=== PATIENT | female | born 1965 | race Caucasian/White ===

== ENCOUNTER 2016-06-07 21:25 | Inpatient (IN) | payer OTHER ==
[~2016-06-07] VITALS: Ht 160 cm; Wt 90.2 kg
[~2016-06-07 21:25] MED LIST: 3N1 COMMODE MC; ASPI-781 PO; AZEL23SP NS; CPM MC; CYCL-319 PO; DOCU-144 PO; DULO60CA59 PO; GABA300C16 PO; LEVO50TA74 PO; LISI10TA2 PO; MELO7.5O PO; METF-382 PO; METO25TA7 PO; OMEP40CA6 PO; OXYC-481 PO; TIZA4CAP6 PO; TRAM50TA2 PO; WALK1EAC23 MC; ZOLP5TAB PO; [UNRECOGNIZED DRUG - OTHER] PO; [UNRECOGNIZED DRUG - OTHER] PO
[2016-06-07 22:25] VITALS: PULSE 74
[2016-06-07 22:31] VITALS: BP 138/83; RESP 20
[2016-06-07 22:44] VITALS: Ht 160 cm; Wt 90.2 kg
[2016-06-07] MEDS ORDERED: LEVO25TA53 PO (23:48)
[2016-06-08] VITALS (12 sets, daily range): BP systolic 117–137; BP diastolic 58–68; PULSE 56–78; RESP 16–20
[2016-06-08] MEDS ORDERED: TIZANIDINE 4 MG TAB PO PRN
--- NOTE | 2016-06-08 02:17 | HP ---
Date/Time of Note Date/Time of Note DATE: 06/08/16 TIME: 02: Assessment/Plan VTE Prophylaxis VTE Prophylaxis Intervention: other (Enoxaparin) Assessment/Plan Assessment/Plan 1) New onset seizures - Admit to Telemetry - EEG and MRI brain - Neurology Consult HPI/ROS Admit Date/Time Admit Date/Time Jun 07, 2016 at 21:25 Hx of Present Illness Patient was transferred to us from [facility] with C/O New Onset Seizure. She had the seizure earlier today, and it was witnessed by her . She had been relaxing when she suddenly felt cold and then began to have what is described as ageneralized tonic-clinic seizure activity, lasting approximately 3 to 4 minutes. She was groggy for about 45 minutes and was back to baseline when she arrived to the ER. She noticed she bit her tongue durien the episode andloss continence of her urine.No abdominal pain. No recent vomiting.No headache. Patient also reports that she has felt a presyncopal sensationof dizziness over the past year, but does not feel that way at present. Other than smoking cigarettes, her ROS is unremarkable. ROS Constitutional: No chills, No febrile Eyes: No discharge, No visual change ENT: No congestion, No dysphagia, No sore throat Respiratory: No cough Cardiovascular: No chest pain, No edema Gastrointestinal: No constipation, No diarrhea, No nausea, No pain Genitourinary: other Musculoskeletal: other (No generalized body aches.) Skin: No bruising, No erythema, No pruritis, No rash Neurologic: seizure, No confusion, No focal-weakness, No headache Endocrine: No polydypsia, No polyuria Lymphatic: No adenopathy, No tender nodes Psychological: anxiety, depression Immunologic: pruritis, No immunodeficiency, No rhinitis PMH/Family/Social Past Medical History Medical History: diabetes, hypertension, hypothyroid, other (bowel troubles) Past Surgical History Past Surgical Hx: other (No seizures.) Social History Alcohol Use: occasionally Smoking Status: Former smoker Drug Use: other (Occasional illicit drug use.) Exam/Review of Systems Vital Signs Vitals Vital Signs Date Time Temp Pulse Resp B/P Pulse Ox O2 Delivery O2 Flow Rate FiO2 06/08/16 00:51 77 06/08/16 00:13 98.4 20 117/58 95 Exam Constitutional: alert, oriented, well developed Head: atraumatic, normocephalic Eyes: EOMI, nl conjunctiva, nl lids, nl sclera ENMT: nl external ears & nose, nl lips & teeth Neck: non-tender, supple Respiratory: clear to auscultation, normal air movement Cardiovascular: nl pulses, regular rate and rhythm Gastrointestinal: nl liver, spleen, non-tender, soft Musculoskeletal: nl extremities to inspection Extremities: normal pulses Neurological: LAND DEVELOPER II-XII intact (Grossly), nl speech Skin: nl turgor, rash or lesions Lymph: nl lymph nodes (Cervical) Medications Medications Current Medications Docusate Sodium (Colace) 100 mg QHS PO ; Start 06/08/16 at 21:00 Duloxetine HCl (Cymbalta) 60 mg DAILY PO ; Start 06/08/16 at 09:00 Gabapentin (Neurontin) 800 mg HS PO ; Start 06/08/16 at 21:00 Lisinopril (Zestril) 10 mg DAILY PO ; Start 06/08/16 at 09:00 Metoprolol Succinate (Toprol Xl) 25 mg BID PO ; Start 06/08/16 at 09:00 Tizanidine HCl (Zanaflex) 4 mg HS PRN PO MUSCLE SPASMS; Start 06/08/16 at 00:00 Zolpidem Tartrate (Ambien) 5 mg HS PRN PO INSOMNIA; Start 06/08/16 at 00:00 Miscellaneous Information 15 mg DAILY PO ; Start 06/08/16 at 09:00; Status UNV Pantoprazole (Protonix Tab) 40 mg DAILY@06 PO ; Start 06/08/16 at 06:00 Miscellaneous Information 500 mg BID PO ; Start 06/08/16 at 09:00; Status UNV Procedures Procedures CT Brain, done at [facility], is listed as Negative in the documentation. SHAWN OLVERA DO Jun 08, 2016 02:17
[2016-06-08] MEDS ORDERED: NACL 0.9% 3 ML SYG IV SCH (05:00)
[2016-06-08] MEDS ORDERED: NITROGLYCERIN (SL) 0.4 MG TAB SL PRN (05:00)
[2016-06-08] MEDS ORDERED: ONDANSETRON 4 MG INJ IV PRN (05:00)
[2016-06-08] MEDS ORDERED: ONDANSETRON 4 MG TAB PO PRN (05:00)
[2016-06-08] MEDS: LEVOTHYROXINE 25 MCG TAB PO SCH (06:28)
[2016-06-08] MEDS: PANTOPRAZOLE (EC) 40 MG TAB PO SCH (06:28)
[2016-06-08] MEDS ORDERED: GLUCAGON 1 MG INJ IM PRN (06:30)
[2016-06-08] MEDS ORDERED: DEXTROSE 50% 50 ML SYRINGE IV PRN ×2 (06:30)
[2016-06-08] MEDS ORDERED: GLUCOSE GEL 15 GRAM TUBE PO PRN ×2 (06:30)
[2016-06-08] MEDS ORDERED: GLUCOSE GEL 15 GRAM TUBE BUCCAL PRN (06:30)
[2016-06-08] MEDS ORDERED: metFORMIN 500 MG TAB PO SCH (07:55)
[2016-06-08] MEDS: ACETAMINOPHEN 325 MG TAB PO PRN ×2 (08:05→18:06)
[2016-06-08] MEDS: MELOXICAM 15 MG TAB PO SCH (08:06)
[2016-06-08] MEDS: SULFASALAZINE (EC) 500 MG TAB PO SCH ×2 (08:06→20:32)
[2016-06-08] MEDS: DULOXETINE 30 MG CAP DR PO SCH (08:07)
[2016-06-08] MEDS: LISINOPRIL 10 MG TAB PO SCH (08:07)
[2016-06-08] MEDS: METOPROLOL (XL) 25 MG TAB PO SCH ×2 (08:11→20:55)
[2016-06-08] MEDS: ENOXAPARIN 30 MG/0.3 ML SYG SC SCH (08:14)
[2016-06-08 11:49] LABS: ADD SCAN DIFF NO
[2016-06-08] MEDS: INSULIN ASPART [NOVOLOG] 3 ML PEN SC SCH ×3 (11:50→21:37)
[2016-06-08] MEDS ORDERED: INSULIN ASPART [NOVOLOG] 3 ML PEN SC SCH (11:50)
[2016-06-08 12:00] LABS: ALBUMIN 3.8 g/dl (3.3-4.9)
[2016-06-08 12:01] LABS: POTASSIUM 3.9 mmol/L (3.5-5.1)
[2016-06-08 12:03] LABS: ALBUMIN/GLOBULIN RATIO 1.35; BILIRUBIN,DIRECT 0.1 mg/dl (0.00-0.20); BILIRUBIN,TOTAL 0.1 mg/dl (0.2-1.3); CREATININE 0.68 mg/dl (0.44-1.00); TOTAL PROTEIN 6.6 g/dl (6.1-8.1)
[2016-06-08 12:04] LABS: CALCIUM 9.3 mg/dl (8.4-10.2); MAGNESIUM 2.1 mg/dl (1.7-2.5); PHOSPHORUS 3.4 mg/dl (2.5-4.9)
[2016-06-08 12:23] LABS: BASOPHILS % 0.2 % (0.0-2.0); EOSINOPHILS % 0.1 % (0.0-7.0); HEMATOCRIT 34.3 % (37.0-47.0); HEMOGLOBIN 10.9 g/dl (12.0-16.0); LYMPHOCYTES # 1.8 10^3/ul (0.8-2.9); LYMPHOCYTES % 21.6 % (15.0-51.0); MEAN CORPUSCULAR HEMOGLOBIN 31.1 pg (29.0-33.0); MEAN CORPUSCULAR HGB CONC 31.8 g/dl (32.0-37.0); MEAN CORPUSCULAR VOLUME 97.7 fl (82.0-101.0); MEAN PLATELET VOLUME 10.3 fl (7.4-10.4); MONOCYTE # 0.7 10^3/ul (0.3-0.9); MONOCYTES % 8.5 % (0.0-11.0); NEUTROPHIL # 5.8 10^3/ul (1.6-7.5); NEUTROPHILS % 69.2 % (39.0-77.0); PLATELET COUNT 223 10^3/UL (140-415); RED BLOOD COUNT 3.51 10^6/ul (4.20-5.40); RED CELL DISTRIBUTION WIDTH 13.2 % (11.5-14.5); WHITE BLOOD COUNT 8.4 10^3/ul (4.8-10.8)
[2016-06-08 13:39] LABS: BARBITURATES Negative (NEGATIVE); BENZODIAZEPINES Negative (NEGATIVE); CANNABINOIDS Positive (NEGATIVE); COCAINE Negative (NEGATIVE); OPIATES Negative (NEGATIVE)
--- NOTE | 2016-06-08 14:21 | CONS ---
Date/Time of Note Date/Time of Note DATE: 06/08/16 TIME: 14:17 Assessment/Plan Assessment/Plan Chief Complaint/Hosp Course 50 year old female with history of RA, diabetes, hypothyroidism presenting with first generalized seizure with post ictal confusion. Recommend: -MRI Brain without contrast -Routine EEG -abstinence from driving up to 6 mo per [place] state regulations -urine tox screen Problems: Consultation Date/Type/Reason Admit Date/Time Jun 07, 2016 at 21:25 Date of Consultation: Jun 08, 2016 Type of Consultation: Neurology Reason for Consultation seizure eval Referring Provider: VANDANA BYRNES NP Hx of Present Illness 50 year old female with history of RA on several immunomodulating medications, smoking history, diabetes, bilateral knee replacements admitted after first onset of generalized seizure. Patient recalls putting her grandson to sleep when she had a generalized convulsion witnessed by her lasting 3-4 mins with associated tongue biting and post-ictal confusing lasting 45 mins. She denies previous hx of seizure, no prior history of CVA. She denies any new medications. She admits to smoking marijuana over 2 weeks ago at a wedding, denies any recent drug use. confusion Eyes: No discharge, No visual change ENT: No congestion, No dysphagia, No sore throat Respiratory: No cough Cardiovascular: No chest pain, No edema Gastrointestinal: No constipation, No diarrhea, No nausea, No pain Genitourinary: other Musculoskeletal: other (No generalized body aches.) Skin: No bruising, No erythema, No pruritis, No rash Neurologic: seizure, No confusion, No focal-weakness, No headache Lymphatic: No adenopathy, No tender nodes Psychological: anxiety, depression Immunologic: pruritis, No immunodeficiency, No rhinitis Past Medical History sisters daughter her niece has epilepsy Medical History: diabetes, hypertension, hypothyroid, other (bowel troubles) Past Surgical History Past Surgical Hx: other (No seizures.) Social History Alcohol Use: occasionally Smoking Status: Former smoker Drug Use: other (Occasional illicit drug use.) Exam/Review of Systems Vital Signs Vitals Vital Signs Date Time Temp Pulse Resp B/P Pulse Ox O2 Delivery O2 Flow Rate FiO2 06/08/16 12:31 65 06/08/16 11:05 98.1 18 119/63 97 Intake and Output 06/07/16 06/07/16 06/08/16 15:00 23:00 07:00 Intake Total 120 ml Balance 120 ml Exam Constitutional: alert, oriented, well developed Psych: confusion Head: normocephalic, other (tongue laceration) Eyes: EOMI, nl conjunctiva, nl lids Neurological: FITTING ROOM ATTENDANT II-XII intact, DTR's symmetric, nl mental status, nl speech, nl strength Results Result Diagram: 06/08/16 1135 06/08/16 1135 Results 24 hrs Laboratory Tests Test 06/07/16 23:03 06/08/16 07:51 06/08/16 11:35 06/08/16 11:51 Bedside Glucose 161 114 108 Alanine Aminotransferase (ALT/SGPT) 27 Albumin 3.8 Albumin/Globulin Ratio 1.35 Alkaline Phosphatase 72 Anion Gap 15 Aspartate Amino Transf (AST/SGOT) 21 Basophils # 0.0 Basophils % 0.2 Blood Urea Nitrogen 18 Calcium Level 9.3 Carbon Dioxide Level 26 Chloride Level 105 Creatinine 0.68 Direct Bilirubin 0.10 Eosinophils # 0.0 Eosinophils % 0.1 Free Thyroxine 1.64 Globulin 2.80 Glucose Level 108 Hematocrit 34.3 L Hemoglobin 10.9 L Indirect Bilirubin 0.0 Lymphocytes # 1.8 Lymphocytes % 21.6 Magnesium Level 2.1 Mean Corpuscular Hemoglobin 31.1 Mean Corpuscular Hemoglobin Concent 31.8 L Mean Corpuscular Volume 97.7 Mean Platelet Volume 10.3 Monocytes # 0.7 Monocytes % 8.5 Neutrophils # 5.8 Neutrophils % 69.2 Nucleated Red Blood Cells # 0.0 Nucleated Red Blood Cells % 0.0 Phosphorus Level 3.4 Platelet Count 223 Potassium Level 3.9 Red Blood Count 3.51 L Red Cell Distribution Width 13.2 Sodium Level 142 Total Bilirubin 0.1 L Total Protein 6.6 White Blood Count 8.4 Test 06/08/16 12:00 Urine Amphetamines Screen Negative Urine Barbiturates Negative Urine Benzodiazepines Screen Negative Urine Cannabinoids Positive Urine Cocaine Screen Negative Urine Opiates Screen Negative Urine Test NEGATIVE Medications Medications Current Medications Docusate Sodium (Colace) 100 mg QHS PO ; Start 06/08/16 at 21:00 Duloxetine HCl (Cymbalta) 60 mg DAILY PO Last administered on 06/08/16t 08:07; Admin Dose 60 MG; Start 06/08/16 at 09:00 Gabapentin (Neurontin) 800 mg HS PO ; Start 06/08/16 at 21:00 Lisinopril (Zestril) 10 mg DAILY PO Last administered on 06/08/16 08:07; Admin Dose 10 MG; Start 06/08/16 at 09:00 Metoprolol Succinate (Toprol Xl) 25 mg BID PO Last administered on 06/08/16 08 :11; Admin Dose 25 MG; Start 06/08/16 at 09:00 Tizanidine HCl (Zanaflex) 4 mg HS PRN PO MUSCLE SPASMS; Start 06/08/16 at 00:00 Zolpidem Tartrate (Ambien) 5 mg HS PRN PO INSOMNIA; Start 06/08/16 at 00:00 Meloxicam (Mobic) 15 mg DAILY PO Last administered on 06/08/16 08:06; Admin Dose 15 MG; Start 06/08/16 at 09:00 Pantoprazole (Protonix Tab) 40 mg DAILY@06 PO Last administered on 06/08/16 06 :28; Admin Dose 40 MG; Start 06/08/16 at 06:00 Sulfasalazine (Azulfidine (Entab)) 500 mg BID PO Last administered on 08:06; Admin Dose 500 MG; Start 06/08/16 at 09:00 Ondansetron HCl (Zofran Tab) 4 mg Q6H PRN PO NAUSEA AND/OR VOMITING; Start 01/15 at 05:00 Ondansetron HCl (Zofran Inj) 4 mg Q6H PRN IV NAUSEA AND/OR VOMITING; Start 01/15 at 05:00 Nitroglycerin (Nitroglycerin (Sl Tab) 0.4 Mg) 1 tab Q5M PRN SL CHEST PAIN; Start 06/08/16 at 05:00 Acetaminophen (Tylenol Tab) 650 mg Q6H PRN PO PAIN LEVEL 1-3 OR FEVER Last administered on 06/08/16 08:05; Admin Dose 650 MG; Start 06/08/16 at 05:00 Enoxaparin Sodium (Lovenox) 30 mg DAILY SC Last administered on 06/08/16 08:14 ; Admin Dose 30 MG; Start 06/08/16 at 09:00 Miscellaneous Information 1 ea NOTE XX ; Start 06/08/16 at 06:30 Glucose (Glutose) 15 gm Q15M PRN PO DECREASED GLUCOSE; Start 06/08/16 at 06:30 Glucose (Glutose) 22.5 gm Q15M PRN PO DECREASED GLUCOSE; Start 06/08/16 at 06: 30 Dextrose (D50w Syringe) 25 ml Q15M PRN IV DECREASED GLUCOSE; Start 06/08/16 at 06:30 Dextrose (D50w Syringe) 50 ml Q15M PRN IV DECREASED GLUCOSE; Start 06/08/16 at 06:30 Glucagon (Glucagen) 1 mg Q15M PRN IM DECREASED GLUCOSE; Start 06/08/16 at 06:30 Glucose (Glutose) 15 gm Q15M PRN BUCCAL DECREASED GLUCOSE; Start 06/08/16 at 06 :30 Diagnostic Test (Pha) (Accucheck) 1 ea 02 XX ; Start 06/09/16 at 02:00 ALDAIR AMEZQUITA MD Jun 08, 2016 14:21
[2016-06-08 14:48] LABS: CHOL/HDL RATIO 2.7 RATIO; CHOLESTEROL 161 mg/dl (100-200); CREATINE KINASE 118 IU/L (23-200); TRIGLYCERIDES 126 mg/dl (0-149)
[2016-06-08 14:49] LABS: HDL CHOLESTEROL 59 mg/dl (37-92)
[2016-06-08 15:00] LABS: CK-MB < 0.22 ng/ml (0.0-2.4)
[2016-06-08 15:04] LABS: TROPONIN-I < 0.012 ng/ml (0.00-0.12)
[2016-06-08 15:22] LABS: THYROID STIMULATING HORMONE 1.35 MIU/L (0.465-4.680)
[2016-06-08] MEDS ORDERED: INSULIN GLARGINE [LANtus] 3 ML PEN SC SCH (20:00)
[2016-06-08] MEDS: DOCUSATE SODIUM 100 MG CAP PO SCH (20:53)
[2016-06-08] MEDS: GABAPENTIN 400 MG CAP PO SCH (20:54)
[2016-06-08] MEDS: ZOLPIDEM 5 MG TAB PO PRN (20:56)
[2016-06-09] VITALS (12 sets, daily range): BP systolic 97–125; BP diastolic 55–69; PULSE 58–71; RESP 16–20
[2016-06-09 06:13] LABS: ADD SCAN DIFF NO
[2016-06-09] MEDS: ACCUCHECK XX SCH (06:17)
[2016-06-09] MEDS: PANTOPRAZOLE (EC) 40 MG TAB PO SCH (06:17)
[2016-06-09 06:27] LABS: BASOPHILS % 0.4 % (0.0-2.0); EOSINOPHILS # 0.1 10^3/ul (0.0-0.5); EOSINOPHILS % 0.9 % (0.0-7.0); HEMOGLOBIN 10.5 g/dl (12.0-16.0); LYMPHOCYTES # 3.1 10^3/ul (0.8-2.9); LYMPHOCYTES % 46.2 % (15.0-51.0); MEAN CORPUSCULAR HEMOGLOBIN 31.4 pg (29.0-33.0); MEAN CORPUSCULAR HGB CONC 31.8 g/dl (32.0-37.0); MEAN CORPUSCULAR VOLUME 98.8 fl (82.0-101.0); MEAN PLATELET VOLUME 10.2 fl (7.4-10.4); MONOCYTE # 0.7 10^3/ul (0.3-0.9); MONOCYTES % 9.8 % (0.0-11.0); NEUTROPHIL # 2.9 10^3/ul (1.6-7.5); NEUTROPHILS % 42.4 % (39.0-77.0); PLATELET COUNT 208 10^3/UL (140-415); RED BLOOD COUNT 3.34 10^6/ul (4.20-5.40); RED CELL DISTRIBUTION WIDTH 13.1 % (11.5-14.5); WHITE BLOOD COUNT 6.8 10^3/ul (4.8-10.8)
[2016-06-09 06:30] LABS: POTASSIUM 4.1 mmol/L (3.5-5.1)
[2016-06-09 06:33] LABS: CREATININE 0.72 mg/dl (0.44-1.00)
[2016-06-09 06:34] LABS: CALCIUM 9.3 mg/dl (8.4-10.2)
[2016-06-09 06:35] LABS: PHOSPHORUS 3.7 mg/dl (2.5-4.9)
[2016-06-09] MEDS: LEVOTHYROXINE 25 MCG TAB PO SCH (07:42)
[2016-06-09] MEDS: INSULIN ASPART [NOVOLOG] 3 ML PEN SC SCH ×4 (07:46→20:22)
[2016-06-09] MEDS: LISINOPRIL 10 MG TAB PO SCH (08:26)
[2016-06-09] MEDS: MELOXICAM 15 MG TAB PO SCH (08:26)
[2016-06-09] MEDS: SULFASALAZINE (EC) 500 MG TAB PO SCH ×2 (08:26→20:19)
[2016-06-09] MEDS: METOPROLOL (XL) 25 MG TAB PO SCH ×2 (08:27→20:21)
[2016-06-09] MEDS: DULOXETINE 30 MG CAP DR PO SCH (08:27)
[2016-06-09] MEDS: ENOXAPARIN 30 MG/0.3 ML SYG SC SCH (08:31)
--- NOTE | 2016-06-09 13:39 | PN ---
DATE: 06/09/2016 SUBJECTIVE DATA: She denies any headaches. No more seizure episodes reported. OBJECTIVE DATA: VITAL SIGNS: Temperature 97.9, pulse of 64, respiratory rate 20, blood pressure 125/69, oxygen saturation 98% on room air. GENERAL: This is an obese female lying in bed, in no apparent distress. HEENT: Head normocephalic and atraumatic. Eyes, anicteric sclerae. Conjunctivae clear. ENT: Nasal septum is midline. Oral mucosa is dry. NECK: Supple. No JVD noticed. RESPIRATORY: Bilaterally clear to auscultation. No adventitious breath sounds. No use of accessory muscles of respiration. CARDIAC: Regular rate and rhythm. No murmurs. ABDOMEN: Soft, nontender and nondistended. Bowel sounds are positive in all 4 quadrants. GENITOURINARY: Deferred. EXTREMITIES: No cyanosis, no clubbing, no edema. Peripheral pulses are palpable. NEUROLOGIC: The patient is awake, alert and oriented. Cranial nerves are grossly intact. LABORATORY AND DIAGNOSTIC DATA: WBC 6.8, hemoglobin 10.5, hematocrit 32.0, platelet count 208. Sodium 147, potassium 4.0, chloride 109, carbon dioxide 28 , anion gap 14, BUN 19, creatinine 0.7, glucose 86, calcium 9.3, phosphorus 3.7 , magnesium 2.0. ASSESSMENT AND PLAN: 1. Reported tonic-clonic seizures. The patient was seen and evaluated by neurology. Continue seizure precautions. Pending electroencephalography and MRI. The patient has no prior history of seizures. 2. Type 2 diabetes. Hemoglobin A1c is 5.5. Continue sliding scale insulin. 3. Hypothyroidism. Continue Synthroid. 4. Essential hypertension. Continue antihypertensives. Blood pressure well controlled. 5. Rheumatoid arthritis. Continue medications. 6. Normocytic normochromic anemia. Etiology unclear. Will order an iron panel on this patient. Will monitor the patient closely. 7. Substance abuse. Urine drug screen positive for marijuana. Cessation advised. 8. Fluid, electrolytes and nutrition. Carbohydrate controlled diet. 9. Deep venous thrombosis prophylaxis. Bilateral sequential compression devices. Subcutaneous Lovenox. 10. Gastrointestinal prophylaxis. Histamine 2 receptor blockers. PLAN: Await electroencephalography and brain MRI. Continue seizure precautions. The case was discussed with Dr. Angel. VANDANA ANGEL MD, AM/NAYELI Conf#: [id number] [facility]#: [id number] MTDD
[2016-06-09 15:14] LABS: IRON 59 ug/dl (35-150)
[2016-06-09 15:23] LABS: TOTAL IRON BINDING CAPACITY 347 ug/dl (241-421)
--- NOTE | 2016-06-09 18:00 | CONS ---
Date/Time of Note Date/Time of Note DATE: 06/09/16 TIME: 17:58 Consult Date/Type/Reason Admit Date/Time Jun 07, 2016 at 21:25 Initial Consult Date 06/08/16 Type of Consultation: Neurology Reason for Consultation generalized seizure activity Ordering Provider: VANDANA BYRNES FORCE ADJUSTMENT SUPERVISOR Subjective no seizures overnight mental status improved family at bedside denies prior hx seizures, patient complains she is on 16 medications and does not want additional meds Objective Vital Signs Date Time Temp Pulse Resp B/P Pulse Ox O2 Delivery O2 Flow Rate FiO2 06/09/16 16:39 69 06/09/16 11:44 97.9 20 125/69 98 06/09/16 08:00 Room Air Intake and Output 06/08/16 06/08/16 06/09/16 15:00 23:00 07:00 Intake Total 1000 ml Output Total 1200 ml Balance -200 ml Exam Constitutional: alert, oriented, well developed Psych: confusion Head: normocephalic, other (tongue laceration) Eyes: EOMI, nl conjunctiva, nl lids Neurological: LIQUOR ESTABLISHMENT MANAGER II-XII intact, DTR's symmetric, nl mental status, nl speech, nl strength Results/Medications Result Diagram: 06/09/16 0553 06/09/16 0553 Results 24 hrs Laboratory Tests Test 06/08/16 20:51 06/09/16 05:53 06/09/16 05:55 06/09/16 06:16 Bedside Glucose 154 97 Anion Gap 14 Basophils # 0.0 Basophils % 0.4 Blood Urea Nitrogen 19 Calcium Level 9.3 Carbon Dioxide Level 28 Chloride Level 109 Creatinine 0.72 Eosinophils # 0.1 Eosinophils % 0.9 Glucose Level 86 Hematocrit 33.0 L Hemoglobin 10.5 L Lymphocytes # 3.1 H Lymphocytes % 46.2 Magnesium Level 2.0 Mean Corpuscular Hemoglobin 31.4 Mean Corpuscular Hemoglobin Concent 31.8 L Mean Corpuscular Volume 98.8 Mean Platelet Volume 10.2 Monocytes # 0.7 Monocytes % 9.8 Neutrophils # 2.9 Neutrophils % 42.4 Nucleated Red Blood Cells # 0.0 Nucleated Red Blood Cells % 0.0 Phosphorus Level 3.7 Platelet Count 208 Potassium Level 4.1 Red Blood Count 3.34 L Red Cell Distribution Width 13.1 Sodium Level 147 H White Blood Count 6.8 Ferritin 20.4 Iron Level 59 Percent Iron Saturation 17 L Total Iron Binding Capacity 347 Test 06/09/16 07:46 06/09/16 12:11 06/09/16 17:16 Bedside Glucose 101 107 114 Medications Current Medications Docusate Sodium (Colace) 100 mg QHS PO Last administered on 06/08/16 20:53; Admin Dose 100 MG; Start 06/08/16 at 21:00 Duloxetine HCl (Cymbalta) 60 mg DAILY PO Last administered on 06/09/16 08:27; Admin Dose 60 MG; Start 06/08/16 at 09:00 Gabapentin (Neurontin) 800 mg HS PO Last administered on 06/08/16 20:54; Admin Dose 800 MG; Start 06/08/16 at 21:00 Lisinopril (Zestril) 10 mg DAILY PO Last administered on 06/09/16 08:26; Admin Dose 10 MG; Start 06/08/16 at 09:00 Metoprolol Succinate (Toprol Xl) 25 mg BID PO Last administered on 06/09/16 08 :27; Admin Dose 25 MG; Start 06/08/16 at 09:00 Tizanidine HCl (Zanaflex) 4 mg HS PRN PO MUSCLE SPASMS; Start 06/08/16 at 00:00 Zolpidem Tartrate (Ambien) 5 mg HS PRN PO INSOMNIA Last administered on 20:56; Admin Dose 5 MG; Start 06/08/16 at 00:00 Meloxicam (Mobic) 15 mg DAILY PO Last administered on 06/09/16 08:26; Admin Dose 15 MG; Start 06/08/16 at 09:00 Pantoprazole (Protonix Tab) 40 mg DAILY@06 PO Last administered on 06/09/16 06 :17; Admin Dose 40 MG; Start 06/08/16 at 06:00 Sulfasalazine (Azulfidine (Entab)) 500 mg BID PO Last administered on 08:26; Admin Dose 500 MG; Start 06/08/16 at 09:00 Ondansetron HCl (Zofran Tab) 4 mg Q6H PRN PO NAUSEA AND/OR VOMITING; Start 01/15 at 05:00 Ondansetron HCl (Zofran Inj) 4 mg Q6H PRN IV NAUSEA AND/OR VOMITING; Start 01/15 at 05:00 Nitroglycerin (Nitroglycerin (Sl Tab) 0.4 Mg) 1 tab Q5M PRN SL CHEST PAIN; Start 06/08/16 at 05:00 Acetaminophen (Tylenol Tab) 650 mg Q6H PRN PO PAIN LEVEL 1-3 OR FEVER Last administered on 06/08/16 18:06; Admin Dose 650 MG; Start 06/08/16 at 05:00 Enoxaparin Sodium (Lovenox) 30 mg DAILY SC Last administered on 06/09/16 08:31 ; Admin Dose 30 MG; Start 06/08/16 at 09:00 Miscellaneous Information 1 ea NOTE XX ; Start 06/08/16 at 06:30 Glucose (Glutose) 15 gm Q15M PRN PO DECREASED GLUCOSE; Start 06/08/16 at 06:30 Glucose (Glutose) 22.5 gm Q15M PRN PO DECREASED GLUCOSE; Start 06/08/16 at 06: 30 Dextrose (D50w Syringe) 25 ml Q15M PRN IV DECREASED GLUCOSE; Start 06/08/16 at 06:30 Dextrose (D50w Syringe) 50 ml Q15M PRN IV DECREASED GLUCOSE; Start 06/08/16 at 06:30 Glucagon (Glucagen) 1 mg Q15M PRN IM DECREASED GLUCOSE; Start 06/08/16 at 06:30 Glucose (Glutose) 15 gm Q15M PRN BUCCAL DECREASED GLUCOSE; Start 06/08/16 at 06 :30 Diagnostic Test (Pha) (Accucheck) 1 ea 02 XX Last administered on 06/09/16 06: 17; Admin Dose 1 EA; Start 06/09/16 at 02:00 Assessment/Plan Chief Complaint/Hosp Course 50 year old female with history of RA, diabetes, hypothyroidism presenting with first generalized seizure with post ictal confusion, symptoms improved. Neurologic exam non-focal. Recommend: -MRI Brain without contrast pending -Routine EEG pending -abstinence from driving up to 6 mo per [place] state regulations -will require AED ppx if she has a second unprovoked seizure, awaiting further study results to decide if AED is indicated she is reluctant to start additional medications at this time on several meds for RA and possibly polypharmacy contributed to first time seizure Problems: ALDAIR AMEZQUITA MD Jun 09, 2016 18:00
[2016-06-09] MEDS: GABAPENTIN 400 MG CAP PO SCH (20:18)
[2016-06-09] MEDS: DOCUSATE SODIUM 100 MG CAP PO SCH (20:19)
[2016-06-09] MEDS: ZOLPIDEM 5 MG TAB PO PRN ×2 (20:21→22:04)
[2016-06-10] VITALS (10 sets, daily range): BP systolic 111–130; BP diastolic 59–66; PULSE 50–78; RESP 16–58
[2016-06-10] MEDS: ACCUCHECK XX SCH (02:00)
[2016-06-10] MEDS: PANTOPRAZOLE (EC) 40 MG TAB PO SCH (05:34)
[2016-06-10 06:05] LABS: ADD SCAN DIFF NO
[2016-06-10 06:08] LABS: BASOPHILS % 0.5 % (0.0-2.0); EOSINOPHILS # 0.1 10^3/ul (0.0-0.5); EOSINOPHILS % 1.1 % (0.0-7.0); HEMATOCRIT 31.5 % (37.0-47.0); HEMOGLOBIN 10.5 g/dl (12.0-16.0); LYMPHOCYTES # 3.2 10^3/ul (0.8-2.9); LYMPHOCYTES % 48.2 % (15.0-51.0); MEAN CORPUSCULAR HGB CONC 33.3 g/dl (32.0-37.0); MONOCYTE # 0.7 10^3/ul (0.3-0.9); MONOCYTES % 10.8 % (0.0-11.0); NEUTROPHIL # 2.6 10^3/ul (1.6-7.5); NEUTROPHILS % 39.2 % (39.0-77.0); PLATELET COUNT 205 10^3/UL (140-415); RED BLOOD COUNT 3.28 10^6/ul (4.20-5.40); RED CELL DISTRIBUTION WIDTH 12.7 % (11.5-14.5); WHITE BLOOD COUNT 6.6 10^3/ul (4.8-10.8)
[2016-06-10 06:40] LABS: CREATININE 0.62 mg/dl (0.44-1.00); POTASSIUM 3.4 mmol/L (3.5-5.1)
[2016-06-10 06:43] LABS: MAGNESIUM 1.9 mg/dl (1.7-2.5); PHOSPHORUS 4.1 mg/dl (2.5-4.9)
[2016-06-10] MEDS: INSULIN ASPART [NOVOLOG] 3 ML PEN SC SCH ×4 (07:55→20:42)
[2016-06-10] MEDS: MELOXICAM 15 MG TAB PO SCH (08:05)
[2016-06-10] MEDS: LEVOTHYROXINE 25 MCG TAB PO SCH (08:05)
[2016-06-10] MEDS: SULFASALAZINE (EC) 500 MG TAB PO SCH ×2 (08:05→20:09)
[2016-06-10] MEDS: DULOXETINE 30 MG CAP DR PO SCH (08:05)
[2016-06-10] MEDS: LISINOPRIL 10 MG TAB PO SCH (08:06)
[2016-06-10] MEDS: ENOXAPARIN 30 MG/0.3 ML SYG SC SCH (08:11)
[2016-06-10] MEDS: METOPROLOL (XL) 25 MG TAB PO SCH ×2 (09:00→20:10)
--- NOTE | 2016-06-10 11:43 | PN ---
Date/Time of Note Date/Time of Note DATE: 06/10/16 TIME: 11:42 Assessment/Plan VTE Prophylaxis VTE Prophylaxis Intervention: LMWH Lines/Catheters IV Catheter Type (from [facility]): Saline Lock Assessment/Plan Chief Complaint/Hosp Course 1. Reported tonic-clonic seizures. The patient was seen and evaluated by neurology. Continue seizure precautions. Pending electroencephalography and brain MRI. The patient has no prior history of seizures. 2. Type 2 diabetes. Hemoglobin A1c is 5.5. Continue sliding scale insulin. 3. Hypothyroidism. Continue Synthroid. 4. Essential hypertension. Continue antihypertensives. Blood pressure well controlled. 5. Rheumatoid arthritis. Continue medications. 6. Normocytic normochromic anemia. Etiology unclear. Iron panel showing low iron saturation. Will monitor the patient closely. 7. Substance abuse. Urine drug screen positive for marijuana. Cessation advised. 8. Fluid, electrolytes and nutrition. Carbohydrate controlled diet. 9. Deep venous thrombosis prophylaxis. Bilateral sequential compression devices. Subcutaneous Lovenox. 10. Gastrointestinal prophylaxis. Histamine 2 receptor blockers. PLAN: Await electroencephalography and brain MRI. Continue seizure precautions. Case discussed with Dr. Wright. Problems: Subjective 24 Hr Interval Summary Free Text/Dictation Denies any complaints. The patient has not had her brain MRI yet. Exam/Review of Systems Vital Signs Vitals Vital Signs Date Time Temp Pulse Resp B/P Pulse Ox O2 Delivery O2 Flow Rate FiO2 06/10/16 08:31 53 06/10/16 07:21 97.9 18 120/59 96 06/10/16 05:35 Room Air Intake and Output 06/09/16 06/09/16 06/10/16 15:00 23:00 07:00 Intake Total 900 ml Balance 900 ml Exam GENERAL: This is an obese female lying in bed, in no apparent distress. HEENT: Head normocephalic and atraumatic. Eyes, anicteric sclerae. Conjunctivae clear. ENT: Nasal septum is midline. Oral mucosa is dry. NECK: Supple. No JVD noticed. RESPIRATORY: Bilaterally clear to auscultation. No adventitious breath sounds. No use of accessory muscles of respiration. CARDIAC: Regular rate and rhythm. No murmurs. ABDOMEN: Soft, nontender and nondistended. Bowel sounds are positive in all 4 quadrants. GENITOURINARY: Deferred. EXTREMITIES: No cyanosis, no clubbing, no edema. Peripheral pulses are palpable. NEUROLOGIC: The patient is awake, alert and oriented. Cranial nerves are grossly intact. Results Result Diagram: 06/10/16 0534 06/10/16 0534 Results 24 hrs Laboratory Tests Test 06/09/16 12:11 06/09/16 17:16 06/09/16 19:41 06/10/16 05:32 Bedside Glucose 107 114 120 Magnesium Level 1.9 Phosphorus Level 4.1 Test 06/10/16 05:34 06/10/16 07:38 Anion Gap 13 Basophils # 0.0 Basophils % 0.5 Blood Urea Nitrogen 14 Calcium Level 9.0 Carbon Dioxide Level 27 Chloride Level 107 Creatinine 0.62 Eosinophils # 0.1 Eosinophils % 1.1 Glucose Level 87 Hematocrit 31.5 L Hemoglobin 10.5 L Lymphocytes # 3.2 H Lymphocytes % 48.2 Mean Corpuscular Hemoglobin 32.0 Mean Corpuscular Hemoglobin Concent 33.3 Mean Corpuscular Volume 96.0 Mean Platelet Volume 10.0 Monocytes # 0.7 Monocytes % 10.8 Neutrophils # 2.6 Neutrophils % 39.2 Nucleated Red Blood Cells # 0.0 Nucleated Red Blood Cells % 0.0 Platelet Count 205 Potassium Level 3.4 L Red Blood Count 3.28 L Red Cell Distribution Width 12.7 Sodium Level 144 White Blood Count 6.6 Bedside Glucose 103 Medications Medications Current Medications Docusate Sodium (Colace) 100 mg QHS PO Last administered on 06/09/16 20:19; Admin Dose 100 MG; Start 06/08/16 at 21:00 Duloxetine HCl (Cymbalta) 60 mg DAILY PO Last administered on 06/10/16 08:05; Admin Dose 60 MG; Start 06/08/16 at 09:00 Gabapentin (Neurontin) 800 mg HS PO Last administered on 06/09/16 20:18; Admin Dose 800 MG; Start 06/08/16 at 21:00 Lisinopril (Zestril) 10 mg DAILY PO Last administered on 06/10/16 08:06; Admin Dose 10 MG; Start 06/08/16 at 09:00 Metoprolol Succinate (Toprol Xl) 25 mg BID PO Last administered on 06/09/16 20 :21; Admin Dose 25 MG; Start 06/08/16 at 09:00 Tizanidine HCl (Zanaflex) 4 mg HS PRN PO MUSCLE SPASMS; Start 06/08/16 at 00:00 Zolpidem Tartrate (Ambien) 5 mg HS PRN PO INSOMNIA Last administered on 22:04; Admin Dose 5 MG; Start 06/08/16 at 00:00 Meloxicam (Mobic) 15 mg DAILY PO Last administered on 06/10/16 08:05; Admin Dose 15 MG; Start 06/08/16 at 09:00 Pantoprazole (Protonix Tab) 40 mg DAILY@06 PO Last administered on 06/10/16 05 :34; Admin Dose 40 MG; Start 06/08/16 at 06:00 Sulfasalazine (Azulfidine (Entab)) 500 mg BID PO Last administered on 08:05; Admin Dose 500 MG; Start 06/08/16 at 09:00 Ondansetron HCl (Zofran Tab) 4 mg Q6H PRN PO NAUSEA AND/OR VOMITING; Start 01/15 at 05:00 Ondansetron HCl (Zofran Inj) 4 mg Q6H PRN IV NAUSEA AND/OR VOMITING; Start 01/15 at 05:00 Nitroglycerin (Nitroglycerin (Sl Tab) 0.4 Mg) 1 tab Q5M PRN SL CHEST PAIN; Start 06/08/16 at 05:00 Acetaminophen (Tylenol Tab) 650 mg Q6H PRN PO PAIN LEVEL 1-3 OR FEVER Last administered on 06/08/16 18:06; Admin Dose 650 MG; Start 06/08/16 at 05:00 Enoxaparin Sodium (Lovenox) 30 mg DAILY SC Last administered on 06/10/16 08:11 ; Admin Dose 30 MG; Start 06/08/16 at 09:00 Miscellaneous Information 1 ea NOTE XX ; Start 06/08/16 at 06:30 Glucose (Glutose) 15 gm Q15M PRN PO DECREASED GLUCOSE; Start 06/08/16 at 06:30 Glucose (Glutose) 22.5 gm Q15M PRN PO DECREASED GLUCOSE; Start 06/08/16 at 06: 30 Dextrose (D50w Syringe) 25 ml Q15M PRN IV DECREASED GLUCOSE; Start 06/08/16 at 06:30 Dextrose (D50w Syringe) 50 ml Q15M PRN IV DECREASED GLUCOSE; Start 06/08/16 at 06:30 Glucagon (Glucagen) 1 mg Q15M PRN IM DECREASED GLUCOSE; Start 06/08/16 at 06:30 Glucose (Glutose) 15 gm Q15M PRN BUCCAL DECREASED GLUCOSE; Start 06/08/16 at 06 :30 Diagnostic Test (Pha) (Accucheck) 1 ea 02 XX Last administered on 06/09/16t 06: 17; Admin Dose 1 EA; Start 06/09/16 at 02:00 VANDANA BYRNES NP Jun 10, 2016 11:43
--- NOTE | 2016-06-10 16:38 | CONS ---
Date/Time of Note Date/Time of Note DATE: 06/10/16 TIME: 16:37 Consult Date/Type/Reason Admit Date/Time Jun 07, 2016 at 21:25 Initial Consult Date 06/08/16 Type of Consultation: Neurology Reason for Consultation unable to see patient today, she was receiving MRI will follow up again tomorrow and review EEG results and MRI for further recommendations Ordering Provider: VANDANA BYRNES VAMP MAKER Objective Vital Signs Date Time Temp Pulse Resp B/P Pulse Ox O2 Delivery O2 Flow Rate FiO2 06/10/16 12:40 64 06/10/16 11:57 98.5 58 117/66 97 06/10/16 05:35 Room Air Intake and Output 06/09/16 06/09/16 06/10/16 15:00 23:00 07:00 Intake Total 900 ml Balance 900 ml Results/Medications Result Diagram: 06/10/16 0534 06/10/16 0534 Results 24 hrs Laboratory Tests Test 06/09/16 17:16 06/09/16 19:41 06/10/16 05:32 06/10/16 05:34 Bedside Glucose 114 120 Magnesium Level 1.9 Phosphorus Level 4.1 Anion Gap 13 Basophils # 0.0 Basophils % 0.5 Blood Urea Nitrogen 14 Calcium Level 9.0 Carbon Dioxide Level 27 Chloride Level 107 Creatinine 0.62 Eosinophils # 0.1 Eosinophils % 1.1 Glucose Level 87 Hematocrit 31.5 L Hemoglobin 10.5 L Lymphocytes # 3.2 H Lymphocytes % 48.2 Mean Corpuscular Hemoglobin 32.0 Mean Corpuscular Hemoglobin Concent 33.3 Mean Corpuscular Volume 96.0 Mean Platelet Volume 10.0 Monocytes # 0.7 Monocytes % 10.8 Neutrophils # 2.6 Neutrophils % 39.2 Nucleated Red Blood Cells # 0.0 Nucleated Red Blood Cells % 0.0 Platelet Count 205 Potassium Level 3.4 L Red Blood Count 3.28 L Red Cell Distribution Width 12.7 Sodium Level 144 White Blood Count 6.6 Test 06/10/16 07:38 06/10/16 12:10 Bedside Glucose 103 97 Medications Current Medications Docusate Sodium (Colace) 100 mg QHS PO Last administered on 06/09/16 20:19; Admin Dose 100 MG; Start 06/08/16 at 21:00 Duloxetine HCl (Cymbalta) 60 mg DAILY PO Last administered on 06/10/16 08:05; Admin Dose 60 MG; Start 06/08/16 at 09:00 Gabapentin (Neurontin) 800 mg HS PO Last administered on 06/09/16 20:18; Admin Dose 800 MG; Start 06/08/16 at 21:00 Lisinopril (Zestril) 10 mg DAILY PO Last administered on 06/10/16 08:06; Admin Dose 10 MG; Start 06/08/16 at 09:00 Metoprolol Succinate (Toprol Xl) 25 mg BID PO Last administered on 06/09/16 20 :21; Admin Dose 25 MG; Start 06/08/16 at 09:00 Tizanidine HCl (Zanaflex) 4 mg HS PRN PO MUSCLE SPASMS; Start 06/08/16 at 00:00 Zolpidem Tartrate (Ambien) 5 mg HS PRN PO INSOMNIA Last administered on 22:04; Admin Dose 5 MG; Start 06/08/16 at 00:00 Meloxicam (Mobic) 15 mg DAILY PO Last administered on 06/10/16 08:05; Admin Dose 15 MG; Start 06/08/16 at 09:00 Pantoprazole (Protonix Tab) 40 mg DAILY@06 PO Last administered on 06/10/16 05 :34; Admin Dose 40 MG; Start 06/08/16 at 06:00 Sulfasalazine (Azulfidine (Entab)) 500 mg BID PO Last administered on 08:05; Admin Dose 500 MG; Start 06/08/16 at 09:00 Ondansetron HCl (Zofran Tab) 4 mg Q6H PRN PO NAUSEA AND/OR VOMITING; Start 01/15 at 05:00 Ondansetron HCl (Zofran Inj) 4 mg Q6H PRN IV NAUSEA AND/OR VOMITING; Start 01/15 at 05:00 Nitroglycerin (Nitroglycerin (Sl Tab) 0.4 Mg) 1 tab Q5M PRN SL CHEST PAIN; Start 06/08/16 at 05:00 Acetaminophen (Tylenol Tab) 650 mg Q6H PRN PO PAIN LEVEL 1-3 OR FEVER Last administered on 06/08/16 18:06; Admin Dose 650 MG; Start 3/10/17 at 05:00 Enoxaparin Sodium (Lovenox) 30 mg DAILY SC Last administered on 06/10/16 08:11 ; Admin Dose 30 MG; Start 06/08/16 at 09:00 Miscellaneous Information 1 ea NOTE XX ; Start 06/08/16 at 06:30 Glucose (Glutose) 15 gm Q15M PRN PO DECREASED GLUCOSE; Start 06/08/16 at 06:30 Glucose (Glutose) 22.5 gm Q15M PRN PO DECREASED GLUCOSE; Start 06/08/16 at 06: 30 Dextrose (D50w Syringe) 25 ml Q15M PRN IV DECREASED GLUCOSE; Start 06/08/16 at 06:30 Dextrose (D50w Syringe) 50 ml Q15M PRN IV DECREASED GLUCOSE; Start 06/08/16 at 06:30 Glucagon (Glucagen) 1 mg Q15M PRN IM DECREASED GLUCOSE; Start 06/08/16 at 06:30 Glucose (Glutose) 15 gm Q15M PRN BUCCAL DECREASED GLUCOSE; Start 06/08/16 at 06 :30 Diagnostic Test (Pha) (Accucheck) 1 ea 02 XX Last administered on 06/09/16 06: 17; Admin Dose 1 EA; Start 06/09/16 at 02:00 Assessment/Plan Chief Complaint/Hosp Course 50 year old female with history of RA, diabetes, hypothyroidism presenting with first generalized seizure with post ictal confusion, symptoms improved. Neurologic exam non-focal. Recommend: -MRI Brain without contrast pending -Routine EEG pending -abstinence from driving up to 6 mo per [place] state regulations -will require AED ppx if she has a second unprovoked seizure, awaiting further study results to decide if AED is indicated she is reluctant to start additional medications at this time on several meds for RA and possibly polypharmacy contributed to first time seizure Problems: ALDAIR AMEZQUITA MD Jun 10, 2016 16:38
--- NOTE | 2016-06-10 17:22 | RADRPT ---
PROCEDURE: MRI Brain without contrast. CLINICAL INDICATION: Generalized seizure. TECHNIQUE: An MRI of the brain was performed utilizing the following sequences: Sagittal and axial T1 weighted, axial T2 weighted, axial diffusion weighted with ADC mapping, coronal GRE, coronal T1 3-D FSPGR, coronal and axial FLAIR. COMPARISON: None. FINDINGS: Multiple images are degraded by motion. No diffusion weighted abnormalities are seen to suggest the presence of acute ischemia or recent inf arct. No hypointense signal abnormalities are seen on the GRE images to suggest the presence of blo od degradation products. There is no evidence of intracranial hemorrhage, mass effect, or midline s hift. No extra-axial fluid collections are seen. The ventricles and sulci are age-appropriate. Bila teral hippocampi are symmetric in size and signal intensity. There are few scattered foci of T2 FLAIR hyperintensity in the white matter, which are nonspecific i n etiology but likely reflect chronic small vessel ischemic changes. No abnormal intracranial vascular flow void is noted. The visualized paranasal sinuses are grossly c lear. IMPRESSION: 1. No acute intracranial hemorrhage, infarction or mass. 2. Minimal nonspecific white matter signal abnormality which likely represent chronic small vessel ischemic changes. 3. Bilateral hippocampi are symmetric in size and signal intensity. RPTAT: PP .Roxanna Wen MD, Date Time Electronically viewed and signed by .Roxanna Wen MD, MD on 06/10/2016 17:21 .N/
[2016-06-10] MEDS: GABAPENTIN 400 MG CAP PO SCH (20:09)
[2016-06-10] MEDS: DOCUSATE SODIUM 100 MG CAP PO SCH (20:10)
[2016-06-10] MEDS: ZOLPIDEM 5 MG TAB PO PRN (23:51)
[2016-06-11] VITALS (9 sets, daily range): BP systolic 121–143; BP diastolic 58–78; PULSE 57–73; RESP 18
[2016-06-11] MEDS: ACCUCHECK XX SCH (02:00)
[2016-06-11] MEDS: LEVOTHYROXINE 25 MCG TAB PO SCH (06:08)
[2016-06-11] MEDS: PANTOPRAZOLE (EC) 40 MG TAB PO SCH (06:08)
[2016-06-11] MEDS: INSULIN ASPART [NOVOLOG] 3 ML PEN SC SCH ×2 (07:55→11:50)
[2016-06-11] MEDS: METOPROLOL (XL) 25 MG TAB PO SCH (09:00)
[2016-06-11] MEDS: LISINOPRIL 10 MG TAB PO SCH (09:00)
[2016-06-11] MEDS: SULFASALAZINE (EC) 500 MG TAB PO SCH (09:21)
[2016-06-11] MEDS: MELOXICAM 15 MG TAB PO SCH (09:22)
[2016-06-11] MEDS: DULOXETINE 30 MG CAP DR PO SCH (09:22)
[2016-06-11] MEDS: ENOXAPARIN 30 MG/0.3 ML SYG SC SCH (09:31)
--- NOTE | 2016-06-11 09:33 | SP ---
DATE OF PROCEDURE: 06/08/2016 PROCEDURE: Electroencephalogram. HISTORY: A 50-year-old woman with history of rheumatoid arthritis was admitted with new onset of ge neralized seizure. CURRENT MEDICATIONS: 1. Gabapentin. 2. Duloxetine. PROCEDURE: Utilizing a 16-channel EEG machine, cap scalp electrodes were applied in accordance with 10/20 system. Cdwry-[id number] and [id number] montages were displayed. Electrical impedances were measured and reported. DESCRIPTION: During the resting state a posterior dominant rhythm of about 8 to 9 Hz were seen bihe mispherically. Photic stimulation and hyperventilation was not performed. There was no focal later alizing or epileptiform discharge identified. INTERPRETATION: This is a normal EEG. A normal EEG does not exclude seizure disorder. Please francesca elate clinically. Dictated By: BRADLEY CARTAGENA/NAYELI Conf#: [id number] DID#: [id number]
[2016-06-11] MEDS ORDERED: METF500T PO (09:56)
[2016-06-11] MEDS ORDERED: GABA400C14 PO (09:56)
--- NOTE | 2016-06-11 11:42 | CONS ---
Date/Time of Note Date/Time of Note DATE: 06/11/16 TIME: 11:41 Consult Date/Type/Reason Admit Date/Time Jun 07, 2016 at 21:25 Initial Consult Date 06/08/16 Type of Consultation: Neurology Reason for Consultation seizure Ordering Provider: VANDANA BYRNES IMMIGRATION INVESTIGATOR Subjective no overnight events no further seizures Objective Vital Signs Date Time Temp Pulse Resp B/P Pulse Ox O2 Delivery O2 Flow Rate FiO2 06/11/16 08:18 58 06/11/16 07:44 98.2 18 129/60 98 06/11/16 04:51 Room Air Intake and Output 06/10/16 06/10/16 06/11/16 15:00 23:00 07:00 Intake Total 1200 ml 720 ml Output Total 900 ml Balance 300 ml 720 ml awake alert oriented x3 no aphasia follows all commands no neglect CN II-XI intact Motor 5/5 Sensory intact Coordination no ataxia Results/Medications Result Diagram: 06/10/16 0534 06/10/16 0534 Results 24 hrs Laboratory Tests Test 06/10/16 12:10 06/10/16 18:19 06/10/16 20:40 06/11/16 08:29 Bedside Glucose 97 205 99 101 Medications Current Medications Docusate Sodium (Colace) 100 mg QHS PO Last administered on 06/10/16 20:10; Admin Dose 100 MG; Start 06/08/16 at 21:00 Duloxetine HCl (Cymbalta) 60 mg DAILY PO Last administered on 06/11/16 09:22; Admin Dose 60 MG; Start 06/08/16 at 09:00 Gabapentin (Neurontin) 800 mg HS PO Last administered on 06/10/16 20:09; Admin Dose 800 MG; Start 06/08/16 at 21:00 Lisinopril (Zestril) 10 mg DAILY PO Last administered on 06/10/16 08:06; Admin Dose 10 MG; Start 06/08/16 at 09:00 Metoprolol Succinate (Toprol Xl) 25 mg BID PO Last administered on 06/10/16 20 :10; Admin Dose 25 MG; Start 06/08/16 at 09:00 Tizanidine HCl (Zanaflex) 4 mg HS PRN PO MUSCLE SPASMS; Start 06/08/16 at 00:00 Zolpidem Tartrate (Ambien) 5 mg HS PRN PO INSOMNIA Last administered on 23:51; Admin Dose 5 MG; Start 06/08/16 at 00:00 Meloxicam (Mobic) 15 mg DAILY PO Last administered on 06/11/16 09:22; Admin Dose 15 MG; Start 06/08/16 at 09:00 Pantoprazole (Protonix Tab) 40 mg DAILY@06 PO Last administered on 06/11/16 06 :08; Admin Dose 40 MG; Start 06/08/16 at 06:00 Sulfasalazine (Azulfidine (Entab)) 500 mg BID PO Last administered on 09:21; Admin Dose 500 MG; Start 06/08/16 at 09:00 Ondansetron HCl (Zofran Tab) 4 mg Q6H PRN PO NAUSEA AND/OR VOMITING; Start 01/15 at 05:00 Ondansetron HCl (Zofran Inj) 4 mg Q6H PRN IV NAUSEA AND/OR VOMITING; Start 01/15 at 05:00 Nitroglycerin (Nitroglycerin (Sl Tab) 0.4 Mg) 1 tab Q5M PRN SL CHEST PAIN; Start 06/08/16 at 05:00 Acetaminophen (Tylenol Tab) 650 mg Q6H PRN PO PAIN LEVEL 1-3 OR FEVER Last administered on 06/08/16 18:06; Admin Dose 650 MG; Start 06/08/16 at 05:00 Enoxaparin Sodium (Lovenox) 30 mg DAILY SC Last administered on 06/11/16 09:31 ; Admin Dose 30 MG; Start 06/08/16 at 09:00 Miscellaneous Information 1 ea NOTE XX ; Start 06/08/16 at 06:30 Glucose (Glutose) 15 gm Q15M PRN PO DECREASED GLUCOSE; Start 06/08/16 at 06:30 Glucose (Glutose) 22.5 gm Q15M PRN PO DECREASED GLUCOSE; Start 06/08/16 at 06: 30 Dextrose (D50w Syringe) 25 ml Q15M PRN IV DECREASED GLUCOSE; Start 06/08/16 at 06:30 Dextrose (D50w Syringe) 50 ml Q15M PRN IV DECREASED GLUCOSE; Start 06/08/16 at 06:30 Glucagon (Glucagen) 1 mg Q15M PRN IM DECREASED GLUCOSE; Start 06/08/16 at 06:30 Glucose (Glutose) 15 gm Q15M PRN BUCCAL DECREASED GLUCOSE; Start 06/08/16 at 06 :30 Diagnostic Test (Pha) (Accucheck) 1 ea 02 XX Last administered on 06/09/16t 06: 17; Admin Dose 1 EA; Start 06/09/16 at 02:00 Assessment/Plan Chief Complaint/Hosp Course 50 year old female with history of RA, diabetes, hypothyroidism presenting with first generalized seizure with post ictal confusion, symptoms improved. Neurologic exam non-focal. MRI Brain w/o contrast chronic small vessel disease. EEG normal Utox + for marijuana Recommend: -abstinence from driving up to 6 mo per [place] state regulations -will require AED ppx if she has a second unprovoked seizure she is reluctant to start additional medications at this time on several meds for RA and possibly polypharmacy in the setting of marijuana use contributed to first time seizure -outpatient neurology follow up advised Problems: ALDAIR AMEZQUITA MD Jun 11, 2016 11:42
--- NOTE | 2016-06-11 15:25 | PDOCDIS ---
Discharge Instructions DIAGNOSIS Discharge Diagnosis: 1. Reported seizure 2. Diabetes 3. History of rheumatoid arthritis CONDITION Patient Condition: Stable HOME CARE INSTRUCTIONS: Special Diet: Carb Controlled Diet FOLLOW UP/APPOINTMENTS Appointments 1. Follow-up with your primary care provider within a week SAEED IVERSON Jun 11, 2016 15:25
--- NOTE | 2016-06-11 15:35 | DS ---
Date/Time of Note Date/Time of Note DATE: 06/11/16 TIME: 15:30 Discharge Summary Admission/Discharge Info Admit Date/Time Jun 07, 2016 at 21:25 Discharge Date/Time Final Diagnosis 1. Reported tonic-clonic seizures. T 2. Type 2 diabetes. 3. Hypothyroidism. 4. Essential hypertension. 5. Rheumatoid arthritis. Patient Condition: Stable Consults 1. Dr. Amy Miller [facility] Course This is a 50-year-old female with past medical history of diabetes, hypertension , hypothyroidism, rheumatoid arthritis, who came to [facility] due to reports of onset of seizure. Per report, patient was witnessed by her have had a seizure. Was reported that she had been relaxing with her granddaughter when she described to have a tonic-clonic seizure activity lasting 3-4 minutes. She was postictal for 45 minutes. It was noticed that she also had bit her tongue and also had urinary incontinence. Patient was seen by neurologist and she did have EEG which was essentially negative and MRI of the brain that showed no mass effect or infarct. She also has no history of prior seizures. We did continue with neuro checks and seizure precautions. After discussion with neurologist we would trial seen patient without any seizure medication. Should she have further seizure we would prescribe her with anticonvulsant. She was otherwise optimized medically. She was continued on insulin regimen for type 2 diabetes and Synthroid for her hypothyroidism. She was also on antihypertensives for her history of hypertension and analgesics for her rheumatoid arthritis. During her course of stay she did improve. No further seizures were noted and we did discharge the patient home without any anticonvulsants per neurologist recommendations. The plan of care was discussed with the patient and patient did verbalize her understanding. On the day of discharge patient was in stable condition Discussed plan of care with Dr. Hutchinson Discharge process time: 40 minutes Disposition: Home Home Meds Active Scripts Front Wheel Walker* (Front Wheel Walker*) 1 Each Dme, 1 EACH [facility] DIRECTED, #1 DME 0 Refills Prov:HAFSA SIERRA 10/22/14 CPM: Continuous Passive Motion* (CPM*) 1 Each Dme, 1 EACH MC DIRECTED, #1 DME 0 Refills Prov:HAFSA SIERRA 10/22/14 3 N 1 Commode* (3 N 1 Commode*) 1 Each Dme, 1 EACH MC DIRECTED, #1 DME 0 Refills Prov:HAFSA SIERRA 10/22/14 Aspirin* (Ecotrin*) 325 Mg Tabec, 325 MG PO BID, #90 Prov:HAFSA SIERRA 10/22/14 Reported Medications Levothyroxine Sodium* (Levothyroxine Sodium*) 25 Mcg Tablet, 25 MCG PO BEFORE BREAKFAST, #30 TAB 06/07/16 Tizanidine Hcl* (Tizanidine Hcl*) 4 Mg Capsule, 4 MG PO HS Y for MUSCLE SPASMS, CAP Take 3 tablets by mouth at bedtime 06/15/15 Duloxetine Hcl* (Duloxetine Hcl*) 60 Mg Capsule.dr, 60 MG PO DAILY, #30 CAP 06/15/[address] [[address]] No Conflict Check, 500 MG PO BID 3 TABS BID 06/15/15 Omeprazole* (Omeprazole*) 40 Mg Capsule.dr, 40 MG PO DAILY, #30 CAP 06/15/15 Meloxicam* (Meloxicam*) 7.5 Mg/5 Ml Oral.susp, 15 MG PO DAILY, #300 ML 06/15/15 [Hydoxychlor] No Conflict Check, 200 MG PO BID 06/15/15 Gabapentin* (Gabapentin*) 300 Mg Capsule, 600 MG PO HS, #60 CAP Take 3 tablets by mouth at bedtime 06/15/15 Docusate Sodium* (Colace*) 100 Mg Capsule, 100 MG PO QHS, CAP 10/21/14 Metoprolol Succinate* (Toprol XL*) 25 Mg Tab.sr.24h, 25 MG PO BID, TAB 10/21/14 Azelastine/Fluticasone (DYMISTA NASAL SPRAY) 23 Gm [place].pump, 23 GM NS BID 10/21/14 Zolpidem Tartrate* (Ambien*) 5 Mg Tablet, 5 MG PO HS Y for INSOMNIA, TAB Take one to two tablets by mouth once daily at bedtime 10/21/14 Lisinopril* (Lisinopril*) 10 Mg Tablet, 10 MG PO DAILY, TAB 10/21/14 Metformin Hcl* (Metformin Hcl*) 500 Mg Tablet, 500 MG PO BID, TAB 10/21/14 Discontinued Reported Medications Levothyroxine Sodium* (Levothyroxine Sodium*) 50 Mcg Tablet, 50 MCG PO AC BREAKFAST, TAB 10/21/14 Follow-up Plan CONDITION Patient Condition: Stable HOME CARE INSTRUCTIONS: Special Diet: Carb Controlled Diet FOLLOW UP/APPOINTMENTS Appointments 1. Follow-up with your primary care provider within a week Pending Labs Laboratory Tests Test 06/10/16 18:19 06/10/16 20:40 06/11/16 08:29 06/11/16 11:52 Bedside Glucose 205mg/dL (70-220) 99mg/dL (70-220) 101mg/dL (70-220) 109mg/dL (70-220) SAEED IVERSON Jun 11, 2016 15:35
== END 2016-06-11 18:11 | disposition home or self-care (01) | DRG 101 ==
LOC: TEL 21:25
PROVIDERS: ADMIT Family Medicine; ATTEND Family Medicine
DX: R56.9 Unspecified convulsions (principal); I10 Essential (primary) hypertension; E03.9 Hypothyroidism, unspecified; D64.9 Anemia, unspecified; E11.9 Type 2 diabetes mellitus without complications; M06.9 Rheumatoid arthritis, unspecified; Z79.4 Long term (current) use of insulin; Z96.653 Presence of artificial knee joint, bilateral
CPT/HCPCS: 70551; 80048; 80053; 80061; 80307; 82550; 82553; 82607; 82652; 82728; 82962; 83036; 83540; 83735; 84100; 84439; 84443; 84484; 84703; 85025; 95819; J1650; J1815

== ENCOUNTER 2017-01-04 18:11 | Inpatient (IN) | payer OTHER ==
[~2017-01-04] VITALS: Ht 160 cm; Wt 75.9 kg
[~2017-01-04 18:11] MED LIST changes: -ASPI-781 PO; -CYCL-319 PO; -GABA300C16 PO; +GABA400C14 PO; +LEVO25TA53 PO; -LEVO50TA74 PO; -METF-382 PO; +METF500T PO; +METO-335 PO; -METO25TA7 PO; -OXYC-481 PO; -TRAM50TA2 PO
[2017-01-04 20:00] VITALS: PULSE 71
[2017-01-04 20:27] VITALS: BP 124/58; RESP 18
[2017-01-04] MEDS ORDERED: ONDANSETRON 4 MG INJ IV PRN (22:00)
[2017-01-04] MEDS ORDERED: LORAZEPAM 2 MG INJ IV PRN (22:00)
[2017-01-04] MEDS ORDERED: NACL 0.9% 3 ML SYG IV SCH (22:00)
[2017-01-04] MEDS ORDERED: ACETAMINOPHEN 325 MG TAB PO PRN (22:00)
--- NOTE | 2017-01-04 22:05 | HP ---
Date/Time of Note Date/Time of Note DATE: 01/04/17 TIME: 22:01 Assessment/Plan VTE Prophylaxis VTE Prophylaxis Intervention: SCD's Assessment/Plan Chief Complaint/Hosp Course This is a 51-year-old female being admitted to the telemetry floor for: #1 seizure: This is a second episode of seizures patient has had since May 2016. Her previous workup did not elicit any findings. differential diagnosis includes hypoglycemia vs medication effect/interaction versus possible marijuana versus other etiology. At the current time will hold patient 's metformin. Will check patient's glucose every 3 hours. Some of the symptoms she described during her first seizure in May do reflect possibly tizanidine withdrawal and she does report that she is not compliant with all of her medications as she does not like taking multiple medications. Hydroxychloroquine also has a serious side effect of seizures along with a host of other interactions. The current time will hold tizanidine hydroxychloroquine as well. We will need to review the rest of her medications as well. We will consult neurology. Will also obtain a EKG in the a.m. Currently she is normal sinus on telemetry monitoring without any overt ST or T- wave abnormalities noted. -Patient did receive a loading dose of Keppra from the transfer facility. I will at the current time continue her on Keppra 500 mg twice daily and await further recommendations from neurology whether this needs to be continued or not. #2 diabetes mellitus: We will check a hemoglobin A1c. At the current time will hold her diabetes medications secondary to possibly being caused #1. #3 rheumatoid arthritis: At the current time will hold her medications including hydroxy chloroquine and tizanidine as well as could be because #1. #4 Hypothyroidism: We will check a TSH level. Resume levothyroxine #5 depression: We will hold her antidepressants at this time as well. #6 hypertension: We will continue lisinopril #7 hx of tachycardia: The current time patient is sinus rhythm, will resume her metoprolol though as did I do not want any risk of any side effects from abrupt withdrawl. #8 DVT GI prophylaxis: SCDs, acid khadijah Further treatment strategy will be implemented as per the clinical course Problems: HPI/ROS Admit Date/Time Admit Date/Time Jan 04, 2017 at 19:45 Hx of Present Illness cc: seizure This is a 51 year old female who was transferred from [facility] after experiencing a seizure. Patient reports that the last thing she remembers was when she was on her way to the bathroom and then after that seeing her daughter in her bedroom. Her daughter who is at the bedside went to check up on the patient and she observed her on the floor with convulsing movements, her eyes were glazed she reports that it took her approximately 10 minutes to return to her baseline. Patient states that she had not been feeling the day before. She feels that the seizures started coming on after she was started on the medication for her rheumatoid arthritis. She was previously seen at [facility] in May for the first time seizure at that time but was not started on any antilipid medications. Today she presented to [facility] and there she was given Ativan as well as Keppra. She does report smoking marijuana but denies any benzodiazepine use. Her urine drug screen was positive for marijuana as well as benzo, she is unsure whether the urine drug screen was done after she received the Ativan at the hospital. She does report that the first time she had a seizure she was feeling diaphoretic, pale and fatigued. She does not check her blood sugars at home. She is currently taking Metformin 1 tablet daily. She does go to it coordinator and he has prescribed her a host of medications for her rheumatologic symptoms however she states that she will be seeing a new it coordinator for second opinion and she does not like being on all these medications. She does report that she also battles with depression and anxiety. Allergies: Hydrocodone Medications: See RICK PERALTA Const: As per HPI Eyes : No pain discharge or redness or change in visual acuity ENT: No pain, sore throat, congestion, congestion, dysphagia or discharge Respiratory: No shortness of breath, cough, sputum, wheezing, or pleuritic pain Cardiovascular: No chest pain, palpitation, PND, or edema GI : no change in appetite, abdominal pain, nausea, vomiting, diarrhea, constipation, or change in the color his stool Genitourinary: No dysuria, hematuria, flank pain , discharge or CVA tenderness Musculoskeletal: No joint pain, back pain, neck pain, restricted range of motion in neck or joints Skin: No rash, bruising or hives Neuro: As per HPI Endocrine: No polyuria, polydipsia, temperature intolerance Psych: As per HPI PMH/Family/Social Past Medical History In May 2016,, first seizure diabetes mellitus, rheumatoid arthritis, tachycardia, hypothyroidism, depression Past Surgical History Left and right knee replacement, bilateral elbow surgery, right shoulder surgery Past Surgical Hx: other Family History Significant Family History: seizures (Knees), other (Stroke: Mom) Social History Alcohol Use: none Smoking Status: Former smoker (Half pack a day 30 years, she quit 3 years ago) Drug Use: marijuana (Daily) Exam/Review of Systems Vital Signs Vitals Vital Signs Date Time Temp Pulse Resp B/P Pulse Ox O2 Delivery O2 Flow Rate FiO2 01/04/17 20:27 98.3 65 18 124/58 95 Exam Exam General: Patient is a pleasant female sitting in bed in no acute distress HEENT: Atraumatic, normocephalic. The pupils are equal, round and reactive. Extraocular motor are intact Neck: Supple with full range of motion. No rigidity or meningismus Chest: Nontender Lungs: Clear to auscultation bilaterally no crackles rales or wheezing Heart: Normal S1-S2, Regular rhythm and rate. No overt murmurs appreciated on auscultation Abdomen: Soft , nontender, nondistended , bowel sounds are present. No guarding no rebound tenderness , Extremities: Normal to inspection, no edema no cyanosis Neurologic: Normal mental status, speech normal, cranial nerves II through XII are intact, motor and sensory are intact, no focal weakness Additional Comments Pertinent laboratory findings from [facility] or below, please see transfer documentation for full documentation. CBC: Within normal values, BMP: Glucose level of 164 otherwise the rest are within normal values. Beta hCG: Negative Urinalysis: Within normal values Urine drug screen: Positive for benzos, marijuana Chest x-ray: No active disease seen in the chest CT head without contrast: Normal unenhanced CT examination of the head CT cervical spine: No evidence of cervical spine fracture or dislocation No EKG in the chart. Medications Medications Current Medications Ondansetron HCl (Zofran Inj) 4 mg Q6H PRN IV NAUSEA AND/OR VOMITING; Start 01/04/17 at 22:00 Acetaminophen (Tylenol Tab) 650 mg Q6H PRN PO PAIN LEVEL 1-3 OR FEVER; Start 01/04/17 at 22:00 Famotidine (Pepcid) 20 mg Q12 PO ; Start 01/04/17 at 22:00 Lorazepam (Ativan) 2 mg Q2H PRN IV SEIZURES; Start 01/04/17 at 22:00 SAHIL KELLOGG Jan 04, 2017 22:05
[2017-01-04] MEDS: LEVETIRACETAM 500 MG TAB PO SCH (22:35)
[2017-01-04] MEDS: FAMOTIDINE 20 MG TAB PO SCH (22:36)
[2017-01-04 23:00] VITALS: Ht 160 cm; Wt 75.9 kg
[2017-01-05] VITALS (13 sets, daily range): BP systolic 103–118; BP diastolic 55–70; PULSE 62–93; RESP 16–19
[2017-01-05 07:19] LABS: BASOPHIL # 0.1 10^3/ul (0.0-0.1); BASOPHILS % 0.7 % (0.0-2.0); EOSINOPHILS # 0.1 10^3/ul (0.0-0.5); EOSINOPHILS % 0.7 % (0.0-7.0); HEMATOCRIT 40.7 % (37.0-47.0); HEMOGLOBIN 12.9 g/dl (12.0-16.0); LYMPHOCYTES # 2.2 10^3/ul (0.8-2.9); LYMPHOCYTES % 30.6 % (15.0-51.0); MEAN CORPUSCULAR HEMOGLOBIN 30.9 pg (29.0-33.0); MEAN CORPUSCULAR HGB CONC 31.7 g/dl (32.0-37.0); MEAN CORPUSCULAR VOLUME 97.6 fl (82.0-101.0); MEAN PLATELET VOLUME 10.2 fl (7.4-10.4); MONOCYTE # 0.8 10^3/ul (0.3-0.9); MONOCYTES % 10.3 % (0.0-11.0); NEUTROPHIL # 4.2 10^3/ul (1.6-7.5); NEUTROPHILS % 57.4 % (39.0-77.0); PLATELET COUNT 228 10^3/UL (140-415); RED BLOOD COUNT 4.17 10^6/ul (4.20-5.40); RED CELL DISTRIBUTION WIDTH 12.9 % (11.5-14.5); WHITE BLOOD COUNT 7.3 10^3/ul (4.8-10.8)
[2017-01-05 07:40] LABS: ALBUMIN 4.2 g/dl (3.3-4.9); ALBUMIN/GLOBULIN RATIO 1.16; BILIRUBIN,INDIRECT 0.3 mg/dl (0-1.1); BILIRUBIN,TOTAL 0.3 mg/dl (0.2-1.3); CALCIUM 9.8 mg/dl (8.4-10.2); CHOL/HDL RATIO 2.4 RATIO; CREATININE 0.91 mg/dl (0.44-1.00); POTASSIUM 4.6 mmol/L (3.5-5.1); TOTAL PROTEIN 7.8 g/dl (6.1-8.1)
[2017-01-05 08:05] LABS: THYROID STIMULATING HORMONE 1.69 MIU/L (0.465-4.680)
[2017-01-05] MEDS: DULOXETINE 30 MG CAP DR PO SCH (08:35)
[2017-01-05] MEDS: LISINOPRIL 10 MG TAB PO SCH (08:35)
[2017-01-05] MEDS: FAMOTIDINE 20 MG TAB PO SCH ×2 (08:36→21:19)
[2017-01-05] MEDS: LEVOTHYROXINE 25 MCG TAB PO SCH (08:36)
[2017-01-05] MEDS: METOPROLOL (XL) 25 MG TAB PO SCH ×2 (08:36→21:00)
[2017-01-05] MEDS: LEVETIRACETAM 500 MG TAB PO SCH ×2 (08:36→21:19)
--- NOTE | 2017-01-05 15:26 | PN ---
Date/Time of Note Date/Time of Note DATE: 01/05/17 TIME: 15:21 Assessment/Plan VTE Prophylaxis VTE Prophylaxis Intervention: SCD's Lines/Catheters IV Catheter Type (from [facility]): [place] [facility] Urinary Cath still in place: No Assessment/Plan Chief Complaint/Hosp Course 1. Seizure disorder. Continue Keppra. Continue seizure precautions. Pending neurology evaluation. 2. Hypothyroidism. Continue Synthroid. 3. Essential hypertension. Continue antihypertensives. Blood pressure well controlled. 4. Rheumatoid arthritis. Continue pain control. Routine medications on hold. 5. History of Type 2 diabetes. Hemoglobin A1c is 5.2. Sugars well controlled off treatment. 6. Fluid, electrolytes and nutrition. Carbohydrate controlled diet. 7. Deep venous thrombosis prophylaxis. Bilateral sequential compression devices. 8. Plan. Continue current management. Await neurology evaluation. Case discussed with Dr. Andres Problems: Subjective 24 Hr Interval Summary Free Text/Dictation Complains of headache. Denies any focal weakness. Exam/Review of Systems Vital Signs Vitals Vital Signs Date Time Temp Pulse Resp B/P Pulse Ox O2 Delivery O2 Flow Rate FiO2 01/05/17 12:09 62 01/05/17 11:46 99.0 16 108/65 98 Intake and Output 01/04/17 01/04/17 01/05/17 15:00 23:00 07:00 Intake Total 500 ml Balance 500 ml Exam GENERAL: This is an obese female lying in bed, in no apparent distress. HEENT: Head normocephalic and atraumatic. Eyes, anicteric sclerae. Conjunctivae clear. ENT: Nasal septum is midline. Oral mucosa is dry. NECK: Supple. No JVD noticed. RESPIRATORY: Bilaterally clear to auscultation. No adventitious breath sounds. No use of accessory muscles of respiration. CARDIAC: Regular rate and rhythm. No murmurs. ABDOMEN: Soft, nontender and nondistended. Bowel sounds are positive in all 4 quadrants. GENITOURINARY: Deferred. EXTREMITIES: No cyanosis, no clubbing, no edema. Peripheral pulses are palpable. NEUROLOGIC: The patient is awake, alert and oriented. Cranial nerves are grossly intact. Results Result Diagram: 01/05/1731 01/05/17630 Results 24 hrs Laboratory Tests Test 01/04/17 22:34 01/05/17 00:59 01/05/17 06:18 01/05/17 06:31 Bedside Glucose 78 119 80 White Blood Count 7.3 Red Blood Count 4.17 #L Hemoglobin 12.9 # Hematocrit 40.7 # Mean Corpuscular Volume 97.6 Mean Corpuscular Hemoglobin 30.9 Mean Corpuscular Hemoglobin Concent 31.7 L Red Cell Distribution Width 12.9 Platelet Count 228 Mean Platelet Volume 10.2 Neutrophils % 57.4 Lymphocytes % 30.6 Monocytes % 10.3 Eosinophils % 0.7 Basophils % 0.7 Nucleated Red Blood Cells % 0.0 Neutrophils # 4.2 Lymphocytes # 2.2 Monocytes # 0.8 Eosinophils # 0.1 Basophils # 0.1 Nucleated Red Blood Cells # 0.0 Sodium Level 140 Potassium Level 4.6 Chloride Level 104 Carbon Dioxide Level 29 Anion Gap 12 Blood Urea Nitrogen 26 H Creatinine 0.91 Glucose Level 82 Hemoglobin A1c 5.2 Calcium Level 9.8 Magnesium Level 2.0 Total Bilirubin 0.3 Direct Bilirubin 0.00 Indirect Bilirubin 0.3 Aspartate Amino Transf (AST/SGOT) 39 Alanine Aminotransferase (ALT/SGPT) 42 Alkaline Phosphatase 72 Total Protein 7.8 Albumin 4.2 Globulin 3.60 H Albumin/Globulin Ratio 1.16 Triglycerides Level 92 Cholesterol Level 144 LDL Cholesterol, Calculated 66 HDL Cholesterol 60 Cholesterol/HDL Ratio 2.4 Thyroid Stimulating Hormone (TSH) 1.690 Test 01/05/17 11:51 Bedside Glucose 96 Medications Medications Current Medications Ondansetron HCl (Zofran Inj) 4 mg Q6H PRN IV NAUSEA AND/OR VOMITING; Start 01/04/17 at 22:00 Acetaminophen (Tylenol Tab) 650 mg Q6H PRN PO PAIN LEVEL 1-3 OR FEVER Last administered on 01/04/17 23:21; Admin Dose 650 MG; Start 01/04/17 at 22:00 Famotidine (Pepcid) 20 mg Q12 PO Last administered on 01/05/17 08:36; Admin Dose 20 MG; Start 01/04/17 at 22:00 Lorazepam (Ativan) 2 mg Q2H PRN IV SEIZURES; Start 01/04/17 at 22:00 Levetiracetam (Keppra) 500 mg BID PO Last administered on 01/05/17 08:36; Admin Dose 500 MG; Start 01/04/17 at 22:00 Duloxetine HCl (Cymbalta) 60 mg DAILY PO Last administered on 01/05/17 08:35; Admin Dose 60 MG; Start 01/05/17 at 09:00 Gabapentin (Neurontin) 800 mg HS PO ; Start 01/05/17 at 21:00 Lisinopril (Zestril) 10 mg DAILY PO Last administered on 01/05/17 08:35; Admin Dose 10 MG; Start 01/05/17 at 09:00 Metoprolol Succinate (Toprol Xl) 25 mg BID PO Last administered on 01/05/17 08 :36; Admin Dose 25 MG; Start 01/05/17 at 09:00 Influenza Virus Vaccine (Fluzone) 0.5 ml ONCE ONCE IM* ; Start 01/06/17 at 09:00 ; Stop 01/06/17 at 09:01 VANDANA BYRNES NP Jan 05, 2017 15:26
--- NOTE | 2017-01-05 15:34 | CONS ---
Date/Time of Note Date/Time of Note DATE: 01/05/17 TIME: 15:31 Assessment/Plan Assessment/Plan Chief Complaint/Hosp Course 51 yo female with RA on multiple medications admitted after second seizure. She was previously seen in May for unprovoked seizure. Would recommend initiation of AED for high risk of recurrent seizures. c/w Keppra 500 mgq12h counseled on marijuana use advised to abstain due to possibility of lowering seizure threshhold driving prohibited up to 6 months per [place] state regulations needs to fu w neurology as outpatient dc planning Problems: Consultation Date/Type/Reason Admit Date/Time Jan 04, 2017 at 19:45 Date of Consultation: Jan 05, 2017 Type of Consultation: Neurology Reason for Consultation seizure Referring Provider: SAHIL KELLOGG Hx of Present Illness 51 year old female with hx of RA on several medications, daily marijuana use admitted with second seizure. She was previously seen in May had a GTC seizure w post ictal period lasting 1 year tongue biting. EEG on prior admission was normal, imaging at that time also normal. She recalls going to use the bathroom yesterday and her daughter found her on the floor bit her tongue. She was given Keppra at another hospital and started on Keppra 500 mg q12h and tx to [facility]. No further seizures. Past Surgical History Past Surgical Hx: other Social History smokes marijuana Alcohol Use: none Smoking Status: Unknown if ever smoked Drug Use: marijuana (Daily) Exam/Review of Systems Vital Signs Vitals Vital Signs Date Time Temp Pulse Resp B/P Pulse Ox O2 Delivery O2 Flow Rate FiO2 01/05/17 12:09 62 01/05/17 11:46 99.0 16 108/65 98 Intake and Output 01/04/17 01/04/17 01/05/17 15:00 23:00 07:00 Intake Total 500 ml Balance 500 ml Exam Neurological: CABLE WIRER II-XII intact, DTR's symmetric, nl mental status, nl speech, nl strength Results Result Diagram: 01/05/1763001/05/17630 Results 24 hrs Laboratory Tests Test 01/04/17 22:34 01/05/17 00:59 01/05/17 06:18 01/05/17 06:31 Bedside Glucose 78 119 80 White Blood Count 7.3 Red Blood Count 4.17 #L Hemoglobin 12.9 # Hematocrit 40.7 # Mean Corpuscular Volume 97.6 Mean Corpuscular Hemoglobin 30.9 Mean Corpuscular Hemoglobin Concent 31.7 L Red Cell Distribution Width 12.9 Platelet Count 228 Mean Platelet Volume 10.2 Neutrophils % 57.4 Lymphocytes % 30.6 Monocytes % 10.3 Eosinophils % 0.7 Basophils % 0.7 Nucleated Red Blood Cells % 0.0 Neutrophils # 4.2 Lymphocytes # 2.2 Monocytes # 0.8 Eosinophils # 0.1 Basophils # 0.1 Nucleated Red Blood Cells # 0.0 Sodium Level 140 Potassium Level 4.6 Chloride Level 104 Carbon Dioxide Level 29 Anion Gap 12 Blood Urea Nitrogen 26 H Creatinine 0.91 Glucose Level 82 Hemoglobin A1c 5.2 Calcium Level 9.8 Magnesium Level 2.0 Total Bilirubin 0.3 Direct Bilirubin 0.00 Indirect Bilirubin 0.3 Aspartate Amino Transf (AST/SGOT) 39 Alanine Aminotransferase (ALT/SGPT) 42 Alkaline Phosphatase 72 Total Protein 7.8 Albumin 4.2 Globulin 3.60 H Albumin/Globulin Ratio 1.16 Triglycerides Level 92 Cholesterol Level 144 LDL Cholesterol, Calculated 66 HDL Cholesterol 60 Cholesterol/HDL Ratio 2.4 Thyroid Stimulating Hormone (TSH) 1.690 Test 01/05/17 11:51 Bedside Glucose 96 Medications Medications Current Medications Ondansetron HCl (Zofran Inj) 4 mg Q6H PRN IV NAUSEA AND/OR VOMITING; Start 01/04/17 at 22:00 Acetaminophen (Tylenol Tab) 650 mg Q6H PRN PO PAIN LEVEL 1-3 OR FEVER Last administered on 01/04/17 23:21; Admin Dose 650 MG; Start 01/04/17 at 22:00 Famotidine (Pepcid) 20 mg Q12 PO Last administered on 01/05/17 08:36; Admin Dose 20 MG; Start 01/04/17 at 22:00 Lorazepam (Ativan) 2 mg Q2H PRN IV SEIZURES; Start 01/04/17 at 22:00 Levetiracetam (Keppra) 500 mg BID PO Last administered on 01/05/17 08:36; Admin Dose 500 MG; Start 01/04/17 at 22:00 Duloxetine HCl (Cymbalta) 60 mg DAILY PO Last administered on 01/05/17 08:35; Admin Dose 60 MG; Start 01/05/17 at 09:00 Gabapentin (Neurontin) 800 mg HS PO ; Start 01/05/17 at 21:00 Lisinopril (Zestril) 10 mg DAILY PO Last administered on 01/05/17 08:35; Admin Dose 10 MG; Start 01/05/17 at 09:00 Metoprolol Succinate (Toprol Xl) 25 mg BID PO Last administered on 01/05/17 08 :36; Admin Dose 25 MG; Start 01/05/17 at 09:00 Influenza Virus Vaccine (Fluzone) 0.5 ml ONCE ONCE IM* ; Start 01/06/17 at 09:00 ; Stop 01/06/17 at 09:01 ALDAIR AMEZQUITA MD Jan 05, 2017 15:34
[2017-01-05 18:03] LABS: OPIATES Positive (NEGATIVE)
[2017-01-05 18:05] LABS: BARBITURATES Negative (NEGATIVE); BENZODIAZEPINES Negative (NEGATIVE); CANNABINOIDS Positive (NEGATIVE); COCAINE Negative (NEGATIVE)
[2017-01-05] MEDS ORDERED: GABAPENTIN 400 MG CAP PO SCH (21:00)
[2017-01-06] VITALS (7 sets, daily range): BP systolic 94–128; BP diastolic 52–70; PULSE 59–91; RESP 18–20
[2017-01-06] MEDS: LEVOTHYROXINE 25 MCG TAB PO SCH (07:29)
[2017-01-06] MEDS: DULOXETINE 30 MG CAP DR PO SCH (08:27)
[2017-01-06] MEDS: LEVETIRACETAM 500 MG TAB PO SCH (08:28)
[2017-01-06] MEDS: LISINOPRIL 10 MG TAB PO SCH (08:28)
[2017-01-06] MEDS: FAMOTIDINE 20 MG TAB PO SCH (08:28)
[2017-01-06] MEDS: METOPROLOL (XL) 25 MG TAB PO SCH (08:28)
[2017-01-06] MEDS ORDERED: INFLUENZA VIRUS VACCINE 0.5 ML (DISPENSING) IM* ONE (09:00)
[2017-01-06 09:25] LABS: BASOPHILS % 0.6 % (0.0-2.0); EOSINOPHILS # 0.1 10^3/ul (0.0-0.5); EOSINOPHILS % 0.9 % (0.0-7.0); HEMATOCRIT 40.8 % (37.0-47.0); HEMOGLOBIN 13.3 g/dl (12.0-16.0); LYMPHOCYTES # 2.1 10^3/ul (0.8-2.9); LYMPHOCYTES % 39.6 % (15.0-51.0); MEAN CORPUSCULAR HEMOGLOBIN 31.1 pg (29.0-33.0); MEAN CORPUSCULAR HGB CONC 32.6 g/dl (32.0-37.0); MEAN CORPUSCULAR VOLUME 95.6 fl (82.0-101.0); MEAN PLATELET VOLUME 10.3 fl (7.4-10.4); MONOCYTE # 0.6 10^3/ul (0.3-0.9); MONOCYTES % 11.7 % (0.0-11.0); NEUTROPHIL # 2.5 10^3/ul (1.6-7.5); PLATELET COUNT 220 10^3/UL (140-415); RED BLOOD COUNT 4.27 10^6/ul (4.20-5.40); RED CELL DISTRIBUTION WIDTH 12.7 % (11.5-14.5); WHITE BLOOD COUNT 5.3 10^3/ul (4.8-10.8)
[2017-01-06 09:44] LABS: MAGNESIUM 1.8 mg/dl (1.7-2.5); PHOSPHORUS 4.5 mg/dl (2.5-4.9)
[2017-01-06 09:55] LABS: CALCIUM 10.4 mg/dl (8.4-10.2); CREATININE 0.78 mg/dl (0.44-1.00); POTASSIUM 5.7 mmol/L (3.5-5.1)
[2017-01-06] MEDS ORDERED: DEXTROSE 50% 50 ML SYRINGE IV ONE (11:30)
[2017-01-06] MEDS ORDERED: INSULIN REGULAR, HUMAN 100 UNIT/1 ML 3ML VIAL IV ONE (11:30)
[2017-01-06 11:44] LABS: CREATINE KINASE 237 IU/L (23-200)
[2017-01-06 12:02] LABS: TROPONIN-I < 0.012 ng/ml (0.00-0.12)
[2017-01-06 16:33] LABS: CREATINE KINASE 205 IU/L (23-200); POTASSIUM 4.8 mmol/L (3.5-5.1)
[2017-01-06 16:46] LABS: CK-MB 0.98 ng/ml (0.0-2.4)
[2017-01-06 16:47] LABS: TROPONIN-I < 0.012 ng/ml (0.00-0.12)
[2017-01-06] MEDS ORDERED: LEVE-5 PO (17:12)
--- NOTE | 2017-01-06 17:23 | PDOCDIS ---
Discharge Instructions DIAGNOSIS Discharge Diagnosis Seizure disorder. CONDITION Patient Condition: Stable HOME CARE INSTRUCTIONS: Special Diet: CARDIAC DIET. CARBOHYDRATE CONTROLLED. FOLLOW UP/APPOINTMENTS Follow-up Plan Odilia Smalls MD Specialty Neurology Office Address [address] [address] [place] [id number] Office OTHER ORDERS: Other Orders: 1. Resume home medications. Start taking Keppra. 2. Take a low-cholesterol, carbohydrate controlled diet. 3. Follow-up with outpatient neurologist [Dr. Smalls]. Please call for appointment. 4. Resume activities as tolerated. 5. Avoid using marijuana. 6. No driving for 6 months or until cleared by a neurologist. VANDANA BYRNES NP Jan 06, 2017 17:23
--- NOTE | 2017-01-06 17:57 | DS ---
Date/Time of Note Date/Time of Note DATE: 01/06/17 TIME: 17:54 Discharge Summary Admission/Discharge Info Admit Date/Time Jan 04, 2017 at 19:45 Discharge Date/Time Discharge Diagnosis 1. Seizure disorder. 2. Hypothyroidism. 3. Essential hypertension. 4. Rheumatoid arthritis. 5. Type 2 diabetes. 6. Marijuana abuse. Patient Condition: Stable Consults 1. Amy Miller MD, Neurology. Hx of Present Illness cc: Seizure This is a 51 year old female who was transferred from [facility] after experiencing a seizure. The patient reported that the last thing she remembered was when she was on her way to the bathroom and then after that seeing her daughter in her bedroom. Her daughter who was at the bedside went to check up on the patient and she observed her on the floor with convulsing movements, her eyes were glazed she reported that it took her approximately 10 minutes to return to her baseline. The patient stated that she had not been feeling well the day before. She felt that the seizures started coming on after she was started on the medication for her rheumatoid arthritis. She was previously seen at [facility] in May for the first time seizure at that time but was not started on any anticonvulsants. Allergies: Hydrocodone Medications: See [facility] Hospital Course The patient was admitted to inpatient telemetry floor. A neurology consult was obtained. The patient was started on antiepileptics and the patient was placed on seizure precautions. Neurology consult was obtained. Neurology saw and evaluated the patient and requested to continue Keppra. The patient was counseled on quitting the use of marijuana because of the possibility of lowering seizure threshold. The patient has underlying hypothyroidism. She was maintained on Synthroid for the same. She has history of rheumatoid arthritis and she follows up with a screenplay writer as outpatient. Her RA medications were put on hold during hospitalizations. This can be resumed once discharged. Patient has history of type 2 diabetes mellitus. Patient's hemoglobin A1c was found to be 5.2 and her blood sugars were well controlled throughout the hospital course off of treatment. The patient has history of essential hypertension. She was maintained on antihypertensives. Her blood pressures remained stable throughout the hospital course. On 01/06/2017, the patient's a.m. labs showed hyperkalemia. The etiology of this remains unclear. The patient also had some tachyarrhythmias on vehicle monitor technician with the patient complaining of palpitations. The patient was treated with IV insulin along with IV dextrose with improvement in the patient's potassium level. The patient's troponins 2 remained negative. The patient's 12-lead EKG showed normal sinus rhythm. The patient had a stable hospital course. The patient was cleared by neurology to be discharged home. Discharge Instructions 1. Resume home medications. Start taking Keppra. 2. Take a low-cholesterol, carbohydrate controlled diet. 3. Follow-up with outpatient neurologist [Dr. Smalls]. Please call for appointment. 4. Resume activities as tolerated. 5. Avoid using marijuana. 6. No driving for 6 months or until cleared by a neurologist. The patient verbalized understanding of her discharge instructions. At this time I would like to thank seeing the patient and providing clinical recommendations. Case discussed with Dr. Andres. Home Meds Active Scripts Levetiracetam* (Keppra*) 500 Mg Tablet, 500 MG PO BID, #60 TAB Prov:VANDANA BYRNES NP 01/06/17 Metformin Hcl (Glucophage) 500 Mg Tablet, 500 MG PO BID WITH MEALS for 30 Days, TAB Prov:SAEED IVERSON 06/11/16 Gabapentin* (Gabapentin*) 400 Mg Capsule, 800 MG PO HS for 30 Days, CAP Prov:SAEED IVERSON 06/11/16 Front Wheel Walker* (Front Wheel Walker*) 1 Each Dme, 1 EACH MC DIRECTED, #1 DME 0 Refills Prov:HAFSA SIERRA 10/22/14 Reported Medications Levothyroxine Sodium* (Levothyroxine Sodium*) 25 Mcg Tablet, 25 MCG PO BEFORE BREAKFAST, #30 TAB 06/07/16 Duloxetine Hcl* (Duloxetine Hcl*) 60 Mg Capsule.dr, 60 MG PO DAILY, #30 CAP 06/15/[address] [[address]] No Conflict Check, 500 MG PO BID 3 TABS BID 06/15/15 Omeprazole* (Omeprazole*) 40 Mg Capsule.dr, 40 MG PO DAILY, #30 CAP 06/15/15 [Hydoxychlor] No Conflict Check, 200 MG PO BID 06/15/15 Docusate Sodium* (Colace*) 100 Mg Capsule, 100 MG PO QHS, CAP 10/21/14 Metoprolol Succinate* (Toprol XL*) 25 Mg Tab.sr.24h, 25 MG PO BID, TAB 10/21/14 Azelastine/Fluticasone (DYMISTA NASAL SPRAY) 23 Gm [place].pump, 23 GM NS BID 10/21/14 Lisinopril* (Lisinopril*) 10 Mg Tablet, 10 MG PO DAILY, TAB 10/21/14 Discontinued Reported Medications Tizanidine Hcl* (Tizanidine Hcl*) 4 Mg Capsule, 4 MG PO HS Y for MUSCLE SPASMS, CAP Take 3 tablets by mouth at bedtime 06/15/15 Meloxicam* (Meloxicam*) 7.5 Mg/5 Ml Oral.susp, 15 MG PO DAILY, #300 ML 06/15/15 Zolpidem Tartrate* (Ambien*) 5 Mg Tablet, 5 MG PO HS Y for INSOMNIA, TAB Take one to two tablets by mouth once daily at bedtime 10/21/14 Discontinued Scripts CPM: Continuous Passive Motion* (CPM*) 1 Each Dme, 1 EACH MC DIRECTED, #1 DME 0 Refills Prov:HAFSA SIERRA 10/22/14 3 N 1 Commode* (3 N 1 Commode*) 1 Each Dme, 1 EACH MC DIRECTED, #1 DME 0 Refills Prov:HAFSA SIERRA 10/22/14 Follow-up Plan Odilia Smalls MD Specialty Neurology Office Address [address] [place] [address] [place] [address] Office Primary Care Provider Not On Staff Doctor Time spent on discharge: > 30 minutes Pending Labs Laboratory Tests Test 01/05/17 20:36 01/06/17 08:43 01/06/17 11:08 01/06/17 15:24 Bedside Glucose 100mg/dL (70-220) White Blood Count 5.310^3/ul (4.8-10.8) Red Blood Count 4.2710^6/ul (4.20-5.40) Hemoglobin 13.3g/dl (12.0-16.0) Hematocrit 40.8% (37.0-47.0) Mean Corpuscular Volume 95.6fl (82.0-101.0) Mean Corpuscular Hemoglobin 31.1pg (29.0-33.0) Mean Corpuscular Hemoglobin Concent 32.6g/dl (32.0-37.0) Red Cell Distribution Width 12.7% (11.5-14.5) Platelet Count 14737^3/UL (140-415) Mean Platelet Volume 10.3fl (7.4-10.4) Neutrophils % 47.0% (39.0-77.0) Lymphocytes % 39.6% (15.0-51.0) Monocytes % 11.7% (0.0-11.0) Eosinophils % 0.9% (0.0-7.0) Basophils % 0.6% (0.0-2.0) Nucleated Red Blood Cells % 0.0/100WBC (0.0-0.0) Neutrophils # 2.510^3/ul (1.6-7.5) Lymphocytes # 2.110^3/ul (0.8-2.9) Monocytes # 0.610^3/ul (0.3-0.9) Eosinophils # 0.110^3/ul (0.0-0.5) Basophils # 0.010^3/ul (0.0-0.1) Nucleated Red Blood Cells # 0.010^3/ul (0.0-0.0) Sodium Level 137mmol/L (135-144) Potassium Level 5.7mmol/L (3.5-5.1) 4.8mmol/L (3.5-5.1) Chloride Level 100mmol/L (97-110) Carbon Dioxide Level 29mmol/L (21-31) Anion Gap 14 (8-16) Blood Urea Nitrogen 18mg/dl (7-20) Creatinine 0.78mg/dl (0.44-1.00) Glucose Level 96mg/dl (70-220) Calcium Level 10.4mg/dl (8.4-10.2) Phosphorus Level 4.5mg/dl (2.5-4.9) Magnesium Level 1.8mg/dl (1.7-2.5) Creatine Kinase 237IU/L (23-200) 205IU/L (23-200) Creatine Kinase Index 0.4 0.5 Creatinine Kinase MB (Mass) 1.00ng/ml (0.0-2.4) 0.98ng/ml (0.0-2.4) Troponin I < 0.012ng/ml (0.00-0.12) < 0.012ng/ml (0.00-0.12) VANDANA BYRNES NP Jan 06, 2017 17:57
--- NOTE | 2017-01-10 13:38 | RADRPT ---
Vent Rate: 83 bpm RR Interval: 0 msec VT Interval: 140 msec QRS Duration: 92 msec QT Interval: 396 msec QTC Interval: 465 msec P-R-T [place]: 67 - -11 - 48 degrees Normal sinus rhythm Inverted T in V2 Prolonged QT Abnormal ECG Electronically Signed By: Heriberto Plata [id number]
--- NOTE | 2017-01-10 13:45 | RADRPT ---
Vent Rate: 65 bpm RR Interval: 0 msec NV Interval: 140 msec QRS Duration: 94 msec QT Interval: 386 msec QTC Interval: 401 msec P-R-T [place]: 58 - 14 - 26 degrees Normal sinus rhythm Cannot rule out Anterior infarct , age undetermined Inverted T in inferolateral leads Abnormal ECG Electronically Signed By: Heriberto Plata [id number]
== END 2017-01-06 18:43 | disposition home or self-care (01) | DRG 101 ==
LOC: MS4 19:45
PROVIDERS: ADMIT Internal Medicine; ATTEND Internal Medicine
DX: G40.909 Epilepsy, unspecified, not intractable, without status epilepticus (principal); I10 Essential (primary) hypertension; F32.9 Major depressive disorder, single episode, unspecified; E03.9 Hypothyroidism, unspecified; E11.9 Type 2 diabetes mellitus without complications; M06.9 Rheumatoid arthritis, unspecified; F12.10 Cannabis abuse, uncomplicated
CPT/HCPCS: 80048; 80053; 80061; 80307; 82550; 82553; 82962; 83036; 83735; 84100; 84132; 84443; 84484; 85025; 90686; 93005; J1815